=== PATIENT | female | born 1990 | race Caucasian/White ===

== ENCOUNTER 2017-07-30 14:32 | Emergency (ER) | payer OTHER ==
[~2017-07-30] VITALS: Ht 162.6 cm; Wt 81.7 kg
[~2017-07-30 14:32] MED LIST: ALBU90OI INH; AMLO5 PO; AMOCLA875 PO; AMOX500 PO; ASPI81CH PO; ATOR10 PO; ATOR20 PO; AZIT250 PO; Aspir 8181 MG PO; BENZ100A PO; BIRTH CONTROL; BIRTH CONTROL PILL; BUPR75 PO; Bactrim Ds Tab1 EACH PO; CEPH500 PO; CIPR500 PO; CITA20 PO; CYCL10 PO; Cipro500 MG PO; DIPH50 PO; FAMC500 PO; FENO48; FENO67 PO; FISH1000 PO; FLUC150A PO; HYDACE5 PO; HYDR1TAB94 PO; LABE100 PO; LABE200 PO; LEVFLO500 PO; LEVONORGESTREL; LISI5; METDOP250 PO; METHYLDOPA PO; MULVITMINE PO; NITR100CA PO; Norco 5-325 Ta1 EACH PO; ONDA4 PO; OXYACE5T PO; Omeprazole20 M1 PO; PHENA100 PO; PHENA200 PO; PROM25 PO; Percocet 5-3251 EACH PO; Pyridium100 MG PO; Pyridium200 MG PO; RANI150 PO; SIME80CH PO; STOMUL PO; SULTRIDS PO; TOBR.3OPSO OP; TRAM50 PO; TRIA80TC TOP; VALS80 PO; Verotin-Gr Cap1 EACH PO; Zofran Odt4 MG SL
[2017-07-30 15:28] LABS: BASOPHILS ABSOLUTE AUTO 0.02 K/mm3 (0.00-0.23); BASOPHILS PERCENT AUTO 0 % (0-2); EOSINOPHILS ABSOLUTE AUTO 0.17 K/mm3 (0.00-0.68); EOSINOPHILS PERCENT AUTO 2 % (0-6); Hematocrit 36.6 % (33.0-51.0); Hemoglobin 12.2 g/dL (11.5-16.0); IMMATURE GRAN ABSOLUTE AUTO 0.02 K/mm3 (0.00-0.10); IMMATURE GRAN PERCENT AUTO 0 % (0-1); LYMPHOCYTES ABSOLUTE AUTO 2.44 K/mm3 (0.84-5.20); LYMPHOCYTES PERCENT AUTO 31 % (21-46); MONOCYTES ABSOLUTE AUTO 0.49 K/mm3 (0.16-1.47); MONOCYTES PERCENT AUTO 6 % (4-13); Mean Corpuscular HGB 28.5 pg (26.0-34.0); Mean Corpuscular HGB Conc 33.3 g/dL (31.5-36.5); Mean Corpuscular Volume 86 fL (80-100); Mean Platelet Volume 9.9 fL (9.1-12.4); NEUTROPHILS ABSOLUTE AUTO 4.63 K/mm3 (1.96-9.15); NEUTROPHILS PERCENT AUTO 60 % (41-73); Platelet Count 213 K/mm3 (150-400); RDW Coefficient Variation 12.3 % (11.7-14.2); RDW Standard Deviation 37.1 fL (35.1-46.3); Red Blood Cell Count 4.28 M/mm3 (3.80-5.20); White Blood Cell Count 7.77 K/mm3 (4.00-11.30)
[2017-07-30 15:47] LABS: Alanine Aminotransfer (ALT/SGP 18 U/L (12-78); Albumin, Blood 3.3 g/dL (3.4-5.0); Albumin/Globulin Ratio 0.9 (0.8-1.8); Alk Phos 112 U/L (50-136); Anion Gap 7 mmol/L (6-16); Aspartate Aminotrans (AST/SGOT 16 U/L (12-37); Bilirubin, Total 0.4 mg/dL (0.1-1.0); Blood Urea Nitrogen 43 mg/dL (8-24); Bun/Creatinine Ratio 15.5 (12.0-20.0); CO2, Blood 24 mmol/L (21-32); Calcium, Blood 8.5 mg/dL (8.5-10.1); Chloride, Blood 112 mmol/L (98-108); Creatinine, Blood 2.77 mg/dL (0.40-1.00); Globulin, Blood 3.7 g/dL (2.2-4.0); Glomerular Filtration Rate 22 (60-); Glucose, Blood 88 mg/dL (70-99); Potassium, Blood 5.1 mmol/L (3.5-5.5); Sodium, Blood 143 mmol/L (136-145); Troponin I <0.015 ng/mL (0.000-0.040)
== END 2017-07-30 17:31 | disposition home or self-care (01) ==
LOC: ER 14:32
PROVIDERS: Physician Assistant
DX: F41.9 Anxiety disorder, unspecified (principal); R07.89 Other chest pain; I10 Essential (primary) hypertension; F32.9 Major depressive disorder, single episode, unspecified; E78.00 Pure hypercholesterolemia, unspecified; Z88.8 Allergy status to other drugs, medicaments and biological substances; Z79.899 Other long term (current) drug therapy
CPT/HCPCS: 36415; 80053; 84484; 85025; 93005; 93010; 99283

== ENCOUNTER 2017-08-21 18:49 | Emergency (ER) | payer OTHER ==
[~2017-08-21] VITALS: Ht 162.6 cm; Wt 81.2 kg
[2017-08-21] MEDS ORDERED: Prinivil10 MG PO (19:22)
== END 2017-08-21 20:00 | disposition home or self-care (01) ==
LOC: ER 18:49
DX: M79.672 Pain in left foot (principal); I10 Essential (primary) hypertension; F32.9 Major depressive disorder, single episode, unspecified; E78.00 Pure hypercholesterolemia, unspecified; Z88.8 Allergy status to other drugs, medicaments and biological substances; Z79.899 Other long term (current) drug therapy
CPT/HCPCS: 73630; 99283

== ENCOUNTER 2017-08-22 23:28 | Emergency (ER) | payer OTHER ==
[~2017-08-22] VITALS: Ht 162.6 cm; Wt 81.2 kg
[~2017-08-22 23:28] MED LIST changes: +Prinivil10 MG PO
[2017-08-23] MEDS ORDERED: ATOR20 PO (00:02)
== END 2017-08-23 00:35 | disposition home or self-care (01) ==
LOC: ER 23:28
DX: M79.672 Pain in left foot (principal); I10 Essential (primary) hypertension; F32.9 Major depressive disorder, single episode, unspecified; E78.00 Pure hypercholesterolemia, unspecified; Z91.09 Other allergy status, other than to drugs and biological substances; Z79.899 Other long term (current) drug therapy
CPT/HCPCS: 99283

== ENCOUNTER 2018-07-18 09:34 | Day surgery (SDC) | payer OTHER ==
[~2018-07-18] VITALS: Ht 162.6 cm; Wt 177.0 kg
[2018-07-18] MEDS ORDERED: VENL37.5 PO (09:53)
[2018-07-18] MEDS ORDERED: Rena-Vite Tabl0.8 MG PO (09:53)
[2018-07-18] MEDS ORDERED: ALPR.25 PO (09:54)
--- NOTE | 2018-07-18 12:41 | NUR ---
DR JONES AT BEDSIDE TO DISCUSS DISPO WITH PATIENT. QUESTIONS ANSWERED.
--- NOTE | 2018-07-18 13:23 | NUR ---
PT VERBALIZED UNDERSTANDING OF D/C INSTRUCTIONS. RIGHT UPPER CHEST INCISION REMAINS COVERED AT TIME OF DISPO WITH CLEAR TEGADERM AND NON ADHESIVE PAD IN PLACE. [facility]. IV REMOVED WITH CATH INTACT. PT GETS UP AND DRESSED WITH NO NEEDED ASSISTANCE. DENIES NEED FOR W/C OUT TO VEHICLE. AMBULATES WITH STEADY GAIT. NADN AT TIME OF DISPO.
== END 2018-07-18 13:10 | disposition home or self-care (01) ==
LOC: MHTC 09:34
DX: Z49.01 Encounter for fitting and adjustment of extracorporeal dialysis catheter (principal); I12.0 Hypertensive chronic kidney disease with stage 5 chronic kidney disease or end stage renal disease; N18.6 End stage renal disease
CPT/HCPCS: 36589; 87081; 99152; J1644; J2250; J3010; J7040

== ENCOUNTER → 2018-08-22 | Outpatient (CLI) | payer OTHER ==
[~2018-08-22] MED LIST changes: +ALPR.25 PO; +Rena-Vite Tabl0.8 MG PO; +VENL37.5 PO
[2018-08-23 10:15] LABS: Candida species (DNA Probe) Negative (NEGATIVE); G. vaginalis (DNA Probe) Positive (NEGATIVE); T. vaginalis (DNA Probe) Negative (NEGATIVE)
== END ==
LOC: LAB 13:37 → LAB SHORT 13:37
PROVIDERS: Registered Nurse Community Health
DX: Z20.2 Contact with and (suspected) exposure to infections with a predominantly sexual mode of transmission (principal)
CPT/HCPCS: 87070; 87205; 87480; 87510; 87660

== ENCOUNTER 2018-10-21 19:27 | Emergency (ER) | payer OTHER ==
[~2018-10-21] VITALS: Ht 160 cm; Wt 77.1 kg
[2018-10-21] MEDS ORDERED: AMLO5 PO (19:38)
[2018-10-21 19:53] LABS: Source, Urine Clean Catch
[2018-10-21 20:02] LABS: Bilirubin, Urine Neg (Neg); Blood, Urine 4+ (Neg); Glucose Qualitative, Urine Neg (Neg); Ketones, Urine Neg (Neg); Leukocyte Esterase, Urine 2+ (Neg); Nitrite, Urine Neg (Neg); Protein, Urine 4+ (Neg); Specific Gravity, Urine 1.015 (1.003-1.022); Urobilinogen, Urine NORM (Normal)
[2018-10-21 20:10] LABS: Appearance, Urine Hazy (Clear); Color, Urine Yellow (P-Yellow)
[2018-10-21 20:11] LABS: Bacteria Mod /hpf; Red Blood Cells, Urine TNTC /hpf (0-2); Squamous Epithelial Cells Few /hpf (Few); White Blood Cells, Urine TNTC /hpf (0-5)
[2018-10-21] MEDS ORDERED: CEPH500 PO (20:26)
== END 2018-10-21 20:40 | disposition home or self-care (01) ==
LOC: ER 19:27
PROVIDERS: Physician Assistant
DX: N39.0 Urinary tract infection, site not specified (principal); F41.9 Anxiety disorder, unspecified; F32.9 Major depressive disorder, single episode, unspecified; I12.0 Hypertensive chronic kidney disease with stage 5 chronic kidney disease or end stage renal disease; N18.6 End stage renal disease; E78.5 Hyperlipidemia, unspecified; Z79.899 Other long term (current) drug therapy
CPT/HCPCS: 81001; 87077; 87086; 87186; 99283

== ENCOUNTER → 2019-01-08 | Outpatient (CLI) | payer OTHER | END | disposition home or self-care (01) | LOC: LAB SHORT 14:15 → LAB 14:15 | PROVIDERS: Obstetrics & Gynecology | DX: Z01.419 Encounter for gynecological examination (general) (routine) without abnormal findings (principal) | CPT/HCPCS: 87624; 87625; G0123 ==

== ENCOUNTER → 2019-02-14 | Outpatient (CLI) | payer OTHER | END | disposition home or self-care (01) | LOC: PLD 15:43 → LAB SHORT 15:43 | DX: D06.1 Carcinoma in situ of exocervix (principal); N87.1 Moderate cervical dysplasia | CPT/HCPCS: 88305; 88342 ==

== ENCOUNTER → 2019-04-17 | Outpatient (CLI) | payer OTHER | END | disposition home or self-care (01) | LOC: LAB SHORT 13:35 → PLD 13:35 | DX: D06.1 Carcinoma in situ of exocervix (principal) | CPT/HCPCS: 88305 ==

== ENCOUNTER 2019-06-07 02:54 | Emergency (ER) | payer OTHER ==
[~2019-06-07] VITALS: Ht 160 cm; Wt 63.5 kg
[2019-06-07] MEDS ORDERED: LORA1 PO (03:13)
[2019-06-07] MEDS ORDERED: ZOLOFT25 MG PO (03:15)
[2019-06-07 03:53] LABS: BASOPHILS ABSOLUTE AUTO 0.02 K/mm3 (0.00-0.23); BASOPHILS PERCENT AUTO 0 % (0-2); EOSINOPHILS ABSOLUTE AUTO 0.04 K/mm3 (0.00-0.68); EOSINOPHILS PERCENT AUTO 0 % (0-6); Hematocrit 40.2 % (33.0-51.0); Hemoglobin 13.5 g/dL (11.5-16.0); IMMATURE GRAN ABSOLUTE AUTO 0.04 K/mm3 (0.00-0.10); IMMATURE GRAN PERCENT AUTO 0 % (0-1); LYMPHOCYTES ABSOLUTE AUTO 0.75 K/mm3 (0.84-5.20); LYMPHOCYTES PERCENT AUTO 6 % (21-46); MONOCYTES ABSOLUTE AUTO 0.76 K/mm3 (0.16-1.47); MONOCYTES PERCENT AUTO 6 % (4-13); Mean Corpuscular HGB 30.3 pg (26.0-34.0); Mean Corpuscular HGB Conc 33.6 g/dL (31.5-36.5); Mean Corpuscular Volume 90 fL (80-100); Mean Platelet Volume 9.2 fL (9.1-12.4); NEUTROPHILS ABSOLUTE AUTO 11.33 K/mm3 (1.96-9.15); NEUTROPHILS PERCENT AUTO 88 % (41-73); Platelet Count 209 K/mm3 (150-400); RDW Coefficient Variation 12.6 % (11.7-14.2); RDW Standard Deviation 41.2 fL (35.1-46.3); Red Blood Cell Count 4.45 M/mm3 (3.80-5.20); White Blood Cell Count 12.94 K/mm3 (4.00-11.30)
[2019-06-07 04:10] LABS: Albumin/Globulin Ratio 1.1 (0.8-1.8); Bilirubin, Total 0.6 mg/dL (0.1-1.0); Bun/Creatinine Ratio 6.5 (12.0-20.0); Calcium, Blood 8.9 mg/dL (8.5-10.1); Creatinine, Blood 4.28 mg/dL (0.40-1.00); Globulin, Blood 3.8 g/dL (2.2-4.0); Potassium, Blood 3.4 mmol/L (3.5-5.5); Total Protein, Blood 7.8 g/dL (6.4-8.2)
[2019-06-07 05:06] LABS: Magnesium, Blood 1.7 mg/dL (1.6-2.4)
[2019-06-07 05:06] LABS: Source, Urine Clean Catch
[2019-06-07 05:08] LABS: Bilirubin, Urine Neg (Neg); Blood, Urine Neg (Neg); Glucose Qualitative, Urine Neg (Neg); Ketones, Urine Neg (Neg); Leukocyte Esterase, Urine Neg (Neg); Nitrite, Urine Neg (Neg); Protein, Urine 3+ (Neg); Urobilinogen, Urine NORM (Normal)
[2019-06-07 05:38] LABS: Appearance, Urine Clear (Clear); Color, Urine Yellow (P-Yellow)
[2019-06-07 05:40] LABS: Bacteria Many /hpf; Red Blood Cells, Urine Not Seen /hpf (0-2); Squamous Epithelial Cells Many /hpf (Few); Transitional Epithelial Cells Rare /hpf (0-Rare); White Blood Cells, Urine Not Seen /hpf (0-5)
[2019-06-07] MEDS ORDERED: Zofran4 MG PO (05:54)
== END 2019-06-07 06:03 | disposition home or self-care (01) ==
LOC: ER 02:54
PROVIDERS: Emergency Medicine
DX: E86.0 Dehydration (principal); R19.7 Diarrhea, unspecified; R11.2 Nausea with vomiting, unspecified; I12.0 Hypertensive chronic kidney disease with stage 5 chronic kidney disease or end stage renal disease; N18.6 End stage renal disease; Z99.2 Dependence on renal dialysis; F41.9 Anxiety disorder, unspecified; F32.9 Major depressive disorder, single episode, unspecified; Z88.8 Allergy status to other drugs, medicaments and biological substances; Z79.899 Other long term (current) drug therapy
CPT/HCPCS: 36415; 80053; 81001; 81025; 83690; 83735; 85025; 96361; 96374; 99284-25; A9270; A9270-GY; J2405; J7030

== ENCOUNTER → 2019-08-12 | Outpatient (CLI) | payer OTHER ==
[~2019-08-12] MED LIST changes: +LORA1 PO; +ZOLOFT25 MG PO; +Zofran4 MG PO
== END | disposition home or self-care (01) ==
LOC: LAB SHORT 19:10 → LAB EV 19:10
DX: N39.0 Urinary tract infection, site not specified (principal)
CPT/HCPCS: 87086

== ENCOUNTER → 2020-05-05 | Outpatient (CLI) | payer OTHER ==
[2020-05-09 08:11] LABS: HPV 16 Negative (Negative); HPV 18 Negative (Negative); HPV OTHER HR TYPES Negative (Negative)
== END | disposition home or self-care (01) ==
LOC: LAB 11:15 → LAB SHORT 11:15
PROVIDERS: Obstetrics & Gynecology
DX: Z01.419 Encounter for gynecological examination (general) (routine) without abnormal findings (principal)
CPT/HCPCS: 87624; G0123

== ENCOUNTER 2020-11-20 20:46 | Emergency (ER) | payer OTHER ==
[~2020-11-20] VITALS: Ht 160 cm; Wt 72.6 kg
[2020-11-20 22:08] LABS: Albumin, Blood 3.6 g/dL (3.4-5.0); Albumin/Globulin Ratio 0.9 (0.8-1.8); Bilirubin, Total 0.5 mg/dL (0.1-1.0); Bun/Creatinine Ratio 7.5 (12.0-20.0); Calcium, Blood 9.6 mg/dL (8.5-10.1); Creatinine, Blood 5.35 mg/dL (0.40-1.00); Globulin, Blood 4.1 g/dL (2.2-4.0); Potassium, Blood 4.2 mmol/L (3.5-5.5); Total Protein, Blood 7.7 g/dL (6.4-8.2)
[2020-11-20 22:10] LABS: BASOPHILS ABSOLUTE AUTO 0.04 K/mm3 (0.00-0.23); BASOPHILS PERCENT AUTO 0 % (0-2); EOSINOPHILS ABSOLUTE AUTO 0.47 K/mm3 (0.00-0.68); EOSINOPHILS PERCENT AUTO 4 % (0-6); Hemoglobin 12.6 g/dL (11.5-16.0); IMMATURE GRAN ABSOLUTE AUTO 0.06 K/mm3 (0.00-0.10); IMMATURE GRAN PERCENT AUTO 1 % (0-1); LYMPHOCYTES ABSOLUTE AUTO 3.11 K/mm3 (0.84-5.20); LYMPHOCYTES PERCENT AUTO 26 % (21-46); MONOCYTES ABSOLUTE AUTO 0.87 K/mm3 (0.16-1.47); MONOCYTES PERCENT AUTO 7 % (4-13); Mean Corpuscular HGB 30.2 pg (26.0-34.0); Mean Corpuscular HGB Conc 33.2 g/dL (31.5-36.5); Mean Corpuscular Volume 91 fL (80-100); NEUTROPHILS ABSOLUTE AUTO 7.48 K/mm3 (1.96-9.15); NEUTROPHILS PERCENT AUTO 62 % (41-73); RDW Coefficient Variation 12.5 % (11.7-14.2); RDW Standard Deviation 41.4 fL (35.1-46.3); Red Blood Cell Count 4.17 M/mm3 (3.80-5.20); White Blood Cell Count 12.03 K/mm3 (4.00-11.30)
[2020-11-20 22:15] LABS: Platelet Count 215 K/mm3 (150-400)
[2020-11-20] MEDS ORDERED: Rena-Vite Tabl0.8 MG PO (22:15)
[2020-11-20 22:46] LABS: Source, Urine Catheter
[2020-11-20 22:51] LABS: Bilirubin, Urine Neg (Neg); Blood, Urine 1+ (Neg); Glucose Qualitative, Urine Neg (Neg); Ketones, Urine Neg (Neg); Leukocyte Esterase, Urine Neg (Neg); Nitrite, Urine Neg (Neg); Protein, Urine 3+ (Neg); Urobilinogen, Urine NORM (Normal)
[2020-11-20 22:55] LABS: Appearance, Urine Clear (Clear); Color, Urine Yellow (P-Yellow)
[2020-11-20 23:05] LABS: Bacteria Mod /hpf; Red Blood Cells, Urine 0-2 /hpf (0-2); Squamous Epithelial Cells Mod /hpf (Few); White Blood Cells, Urine 0-2 /hpf (0-5)
== END 2020-11-21 00:04 | disposition home or self-care (01) ==
LOC: ER 20:46
PROVIDERS: Physician Assistant
DX: R19.7 Diarrhea, unspecified (principal); I12.0 Hypertensive chronic kidney disease with stage 5 chronic kidney disease or end stage renal disease; N18.6 End stage renal disease; Z88.8 Allergy status to other drugs, medicaments and biological substances
CPT/HCPCS: 36415; 80053; 81001; 81025; 83690; 85025; 87077; 87086; 87186; 99284

== ENCOUNTER 2021-02-11 09:19 | Emergency (ER) | payer OTHER ==
[~2021-02-11] VITALS: Ht 162.6 cm; Wt 69.8 kg
== END 2021-02-11 09:55 | disposition home or self-care (01) ==
LOC: ER 09:19
DX: F41.9 Anxiety disorder, unspecified (principal); I10 Essential (primary) hypertension; Z88.8 Allergy status to other drugs, medicaments and biological substances; Z79.899 Other long term (current) drug therapy
CPT/HCPCS: 99283

== ENCOUNTER 2021-03-20 03:38 | Emergency (ER) | payer OTHER ==
[~2021-03-20] VITALS: Ht 162.6 cm; Wt 68.0 kg
[2021-03-20] MEDS ORDERED: FLUO10 PO (04:00)
[2021-03-20] MEDS ORDERED: SEVEC800 PO (04:01)
[2021-03-20] MEDS ORDERED: FAMO20 PO (04:01)
[2021-03-20] MEDS ORDERED: BUPR75 PO (04:02)
[2021-03-20] MEDS ORDERED: CEFD300 PO (04:02)
[2021-03-20] MEDS ORDERED: ONDA4 PO (04:03)
[2021-03-20] MEDS ORDERED: Rena-Vite Tabl0.8 MG PO (04:03)
[2021-03-20 04:26] LABS: BASOPHILS ABSOLUTE AUTO 0.02 K/mm3 (0.00-0.23); BASOPHILS PERCENT AUTO 0 % (0-2); EOSINOPHILS ABSOLUTE AUTO 0.22 K/mm3 (0.00-0.68); EOSINOPHILS PERCENT AUTO 3 % (0-6); Hematocrit 34.8 % (33.0-51.0); Hemoglobin 11.8 g/dL (11.5-16.0); IMMATURE GRAN ABSOLUTE AUTO 0.02 K/mm3 (0.00-0.10); IMMATURE GRAN PERCENT AUTO 0 % (0-1); LYMPHOCYTES ABSOLUTE AUTO 2.01 K/mm3 (0.84-5.20); LYMPHOCYTES PERCENT AUTO 31 % (21-46); MONOCYTES ABSOLUTE AUTO 0.47 K/mm3 (0.16-1.47); MONOCYTES PERCENT AUTO 7 % (4-13); Mean Corpuscular HGB 30.3 pg (26.0-34.0); Mean Corpuscular HGB Conc 33.9 g/dL (31.5-36.5); Mean Corpuscular Volume 90 fL (80-100); Mean Platelet Volume 9.4 fL (9.1-12.4); NEUTROPHILS ABSOLUTE AUTO 3.72 K/mm3 (1.96-9.15); NEUTROPHILS PERCENT AUTO 58 % (41-73); Platelet Count 193 K/mm3 (150-400); RDW Standard Deviation 39.3 fL (35.1-46.3); Red Blood Cell Count 3.89 M/mm3 (3.80-5.20); White Blood Cell Count 6.46 K/mm3 (4.00-11.30)
[2021-03-20 04:49] LABS: Alanine Aminotransfer (ALT/SGP 14 U/L (12-78); Albumin, Blood 3.2 g/dL (3.4-5.0); Albumin/Globulin Ratio 0.8 (0.8-1.8); Alk Phos 85 U/L (50-136); Anion Gap 9 mmol/L (6-16); Aspartate Aminotrans (AST/SGOT 18 U/L (12-37); Bilirubin, Total 0.3 mg/dL (0.1-1.0); Blood Urea Nitrogen 44 mg/dL (8-24); Bun/Creatinine Ratio 7.9 (12.0-20.0); CO2, Blood 28 mmol/L (21-32); Calcium, Blood 9.2 mg/dL (8.5-10.1); Chloride, Blood 103 mmol/L (98-108); Creatinine, Blood 5.56 mg/dL (0.40-1.00); Globulin, Blood 3.8 g/dL (2.2-4.0); Glomerular Filtration Rate 9 (60-); Glucose, Blood 100 mg/dL (70-99); Potassium, Blood 3.3 mmol/L (3.5-5.5); Sodium, Blood 140 mmol/L (136-145); Troponin I <0.015 ng/mL (0.000-0.040)
== END 2021-03-20 07:08 | disposition home or self-care (01) ==
LOC: ER 03:38
PROVIDERS: Student in an Organized Health Care Education/Training Program
DX: R07.9 Chest pain, unspecified (principal); R11.0 Nausea; I10 Essential (primary) hypertension; E78.00 Pure hypercholesterolemia, unspecified; Z88.8 Allergy status to other drugs, medicaments and biological substances; Z79.899 Other long term (current) drug therapy
CPT/HCPCS: 36415; 71045; 80053; 84484; 85025; 93005; 93010; 99285-25

== ENCOUNTER 2021-05-25 21:01 | Emergency (ER) | payer OTHER ==
[~2021-05-25] VITALS: Ht 162.6 cm; Wt 65.8 kg
[~2021-05-25 21:01] MED LIST changes: +CEFD300 PO; +FAMO20 PO; +FLUO10 PO; +SEVEC800 PO
[2021-05-25 21:58] LABS: BASOPHILS ABSOLUTE AUTO 0.03 K/mm3 (0.00-0.23); BASOPHILS PERCENT AUTO 0 % (0-2); EOSINOPHILS ABSOLUTE AUTO 0.05 K/mm3 (0.00-0.68); EOSINOPHILS PERCENT AUTO 1 % (0-6); Hemoglobin 13.4 g/dL (11.5-16.0); IMMATURE GRAN ABSOLUTE AUTO 0.03 K/mm3 (0.00-0.10); IMMATURE GRAN PERCENT AUTO 0 % (0-1); LYMPHOCYTES ABSOLUTE AUTO 1.22 K/mm3 (0.84-5.20); LYMPHOCYTES PERCENT AUTO 13 % (21-46); MONOCYTES ABSOLUTE AUTO 0.41 K/mm3 (0.16-1.47); MONOCYTES PERCENT AUTO 4 % (4-13); Mean Corpuscular HGB 29.6 pg (26.0-34.0); Mean Corpuscular HGB Conc 34.4 g/dL (31.5-36.5); Mean Corpuscular Volume 86 fL (80-100); Mean Platelet Volume 9.4 fL (9.1-12.4); NEUTROPHILS ABSOLUTE AUTO 7.85 K/mm3 (1.96-9.15); NEUTROPHILS PERCENT AUTO 82 % (41-73); Platelet Count 243 K/mm3 (150-400); RDW Coefficient Variation 12.2 % (11.7-14.2); RDW Standard Deviation 38.5 fL (35.1-46.3); Red Blood Cell Count 4.53 M/mm3 (3.80-5.20); White Blood Cell Count 9.59 K/mm3 (4.00-11.30)
[2021-05-25 22:07] LABS: Source, Urine Clean Catch
[2021-05-25 22:10] LABS: Appearance, Urine Clear (Clear); Bilirubin, Urine Neg (Neg); Blood, Urine Neg (Neg); Color, Urine Yellow (P-Yellow); Glucose Qualitative, Urine Neg (Neg); Ketones, Urine Neg (Neg); Leukocyte Esterase, Urine Neg (Neg); Nitrite, Urine Neg (Neg); Protein, Urine 3+ (Neg); Urobilinogen, Urine NORM (Normal)
[2021-05-25 22:29] LABS: Alanine Aminotransfer (ALT/SGP 24 U/L (12-78); Albumin, Blood 3.7 g/dL (3.4-5.0); Albumin/Globulin Ratio 0.9 (0.8-1.8); Alk Phos 96 U/L (50-136); Anion Gap 8 mmol/L (6-16); Aspartate Aminotrans (AST/SGOT 21 U/L (12-37); Bilirubin, Total 0.6 mg/dL (0.1-1.0); Blood Urea Nitrogen 23 mg/dL (8-24); Bun/Creatinine Ratio 6.7 (12.0-20.0); CO2, Blood 29 mmol/L (21-32); Calcium, Blood 9.6 mg/dL (8.5-10.1); Chloride, Blood 98 mmol/L (98-108); Creatinine, Blood 3.43 mg/dL (0.40-1.00); Globulin, Blood 4.2 g/dL (2.2-4.0); Glomerular Filtration Rate 16 (60-); Glucose, Blood 107 mg/dL (70-99); Potassium, Blood 3.7 mmol/L (3.5-5.5); Sodium, Blood 135 mmol/L (136-145); Total Protein, Blood 7.9 g/dL (6.4-8.2); Troponin I <0.015 ng/mL (0.000-0.040)
[2021-05-25 22:42] LABS: Bacteria Many /hpf; Red Blood Cells, Urine 0-2 /hpf (0-2); Squamous Epithelial Cells Many /hpf (Few)
[2021-05-25 22:53] LABS: CPK Creatine Kinase 63 U/L (26-193); Magnesium, Blood 1.9 mg/dL (1.6-2.4)
[2021-05-25 23:25] LABS: Influenza A, PCR NEGATIVE (NEGATIVE); Influenza B, PCR NEGATIVE (NEGATIVE); Resp Syncytial Virus, PCR NEGATIVE (NEGATIVE); SARS-Cov-2 (COVID-19) PCR, MMC NEGATIVE (NEGATIVE)
== END 2021-05-26 00:44 | disposition home or self-care (01) ==
LOC: ER 21:01
PROVIDERS: Physician Assistant; Student in an Organized Health Care Education/Training Program
DX: F41.9 Anxiety disorder, unspecified (principal); M79.10 Myalgia, unspecified site; I12.0 Hypertensive chronic kidney disease with stage 5 chronic kidney disease or end stage renal disease; N18.6 End stage renal disease; Z88.8 Allergy status to other drugs, medicaments and biological substances; Z79.899 Other long term (current) drug therapy; E78.00 Pure hypercholesterolemia, unspecified
CPT/HCPCS: 0241U; 36415; 76770; 80053; 81001; 81025; 82550; 83735; 84484; 85025; 87086; 93005; 93010; 99284-25; A9270; J7030

== ENCOUNTER 2021-06-14 20:47 | Emergency (ER) | payer OTHER ==
[~2021-06-14] VITALS: Ht 162.6 cm; Wt 65.8 kg
[2021-06-14 21:55] LABS: BASOPHILS ABSOLUTE AUTO 0.02 K/mm3 (0.00-0.23); BASOPHILS PERCENT AUTO 0 % (0-2); EOSINOPHILS ABSOLUTE AUTO 0.16 K/mm3 (0.00-0.68); EOSINOPHILS PERCENT AUTO 2 % (0-6); Hematocrit 36.9 % (33.0-51.0); Hemoglobin 12.5 g/dL (11.5-16.0); IMMATURE GRAN ABSOLUTE AUTO 0.02 K/mm3 (0.00-0.10); IMMATURE GRAN PERCENT AUTO 0 % (0-1); LYMPHOCYTES ABSOLUTE AUTO 3.07 K/mm3 (0.84-5.20); LYMPHOCYTES PERCENT AUTO 41 % (21-46); MONOCYTES ABSOLUTE AUTO 0.59 K/mm3 (0.16-1.47); MONOCYTES PERCENT AUTO 8 % (4-13); Mean Corpuscular HGB 29.6 pg (26.0-34.0); Mean Corpuscular HGB Conc 33.9 g/dL (31.5-36.5); Mean Corpuscular Volume 87 fL (80-100); Mean Platelet Volume 9.4 fL (9.1-12.4); NEUTROPHILS ABSOLUTE AUTO 3.72 K/mm3 (1.96-9.15); NEUTROPHILS PERCENT AUTO 49 % (41-73); Platelet Count 232 K/mm3 (150-400); RDW Standard Deviation 38.5 fL (35.1-46.3); Red Blood Cell Count 4.23 M/mm3 (3.80-5.20); White Blood Cell Count 7.58 K/mm3 (4.00-11.30)
[2021-06-14 22:01] LABS: Alanine Aminotransfer (ALT/SGP 20 U/L (12-78); Albumin, Blood 4.1 g/dL (3.4-5.0); Alk Phos 94 U/L (50-136); Anion Gap 9 mmol/L (6-16); Aspartate Aminotrans (AST/SGOT 25 U/L (12-37); Bilirubin, Total 0.4 mg/dL (0.1-1.0); Blood Urea Nitrogen 53 mg/dL (8-24); Bun/Creatinine Ratio 8.6 (12.0-20.0); CO2, Blood 30 mmol/L (21-32); Calcium, Blood 9.7 mg/dL (8.5-10.1); Chloride, Blood 98 mmol/L (98-108); Creatinine, Blood 6.16 mg/dL (0.40-1.00); Glomerular Filtration Rate 8 (60-); Glucose, Blood 113 mg/dL (70-99); Potassium, Blood 4.4 mmol/L (3.5-5.5); Sodium, Blood 137 mmol/L (136-145); Total Protein, Blood 8.1 g/dL (6.4-8.2); Troponin I <0.015 ng/mL (0.000-0.040)
== END 2021-06-14 22:52 | disposition home or self-care (01) ==
LOC: ER 20:47
PROVIDERS: Physician Assistant
DX: R07.89 Other chest pain (principal); Z88.8 Allergy status to other drugs, medicaments and biological substances; Z79.899 Other long term (current) drug therapy; I10 Essential (primary) hypertension; E78.00 Pure hypercholesterolemia, unspecified
CPT/HCPCS: 36415; 71046; 80053; 83690; 83880; 84484; 85025; 93005; 93010; 99285-25

== ENCOUNTER → 2021-08-05 | Outpatient (CLI) | payer OTHER ==
[2021-08-06 16:09] LABS: HPV 16 Negative (Negative); HPV 18 Negative (Negative); HPV OTHER HR TYPES Negative (Negative)
== END | disposition home or self-care (01) ==
LOC: LAB SHORT 15:15
PROVIDERS: Obstetrics & Gynecology
DX: Z01.419 Encounter for gynecological examination (general) (routine) without abnormal findings (principal)
CPT/HCPCS: 87624; G0123

== ENCOUNTER 2021-08-26 22:45 | Emergency (ER) | payer OTHER ==
[~2021-08-26] VITALS: Ht 162.6 cm; Wt 61.2 kg
[2021-08-26 23:14] LABS: BASOPHILS ABSOLUTE AUTO 0.02 K/mm3 (0.00-0.23); BASOPHILS PERCENT AUTO 0 % (0-2); EOSINOPHILS ABSOLUTE AUTO 0.17 K/mm3 (0.00-0.68); EOSINOPHILS PERCENT AUTO 2 % (0-6); Hematocrit 37.9 % (33.0-51.0); Hemoglobin 12.9 g/dL (11.5-16.0); IMMATURE GRAN ABSOLUTE AUTO 0.02 K/mm3 (0.00-0.10); IMMATURE GRAN PERCENT AUTO 0 % (0-1); LYMPHOCYTES ABSOLUTE AUTO 3.05 K/mm3 (0.84-5.20); LYMPHOCYTES PERCENT AUTO 32 % (21-46); MONOCYTES ABSOLUTE AUTO 0.78 K/mm3 (0.16-1.47); MONOCYTES PERCENT AUTO 8 % (4-13); Mean Corpuscular HGB 29.7 pg (26.0-34.0); Mean Corpuscular Volume 87 fL (80-100); NEUTROPHILS ABSOLUTE AUTO 5.42 K/mm3 (1.96-9.15); NEUTROPHILS PERCENT AUTO 57 % (41-73); Platelet Count 279 K/mm3 (150-400); RDW Coefficient Variation 12.1 % (11.7-14.2); RDW Standard Deviation 38.5 fL (35.1-46.3); Red Blood Cell Count 4.35 M/mm3 (3.80-5.20); White Blood Cell Count 9.46 K/mm3 (4.00-11.30)
[2021-08-26 23:33] LABS: Albumin, Blood 3.7 g/dL (3.4-5.0); Albumin/Globulin Ratio 0.9 (0.8-1.8); Bilirubin, Total 0.3 mg/dL (0.1-1.0); Bun/Creatinine Ratio 8.6 (12.0-20.0); Calcium, Blood 9.5 mg/dL (8.5-10.1); Creatinine, Blood 3.95 mg/dL (0.40-1.00); Globulin, Blood 4.1 g/dL (2.2-4.0); Potassium, Blood 3.6 mmol/L (3.5-5.5); Total Protein, Blood 7.8 g/dL (6.4-8.2)
== END 2021-08-27 01:39 | disposition home or self-care (01) ==
LOC: ER 22:45
PROVIDERS: Student in an Organized Health Care Education/Training Program
DX: R07.9 Chest pain, unspecified (principal); E78.5 Hyperlipidemia, unspecified; I10 Essential (primary) hypertension; Z79.899 Other long term (current) drug therapy
CPT/HCPCS: 36415; 71045; 80053; 84484; 85025; 93005; 93010; 99284-25

== ENCOUNTER 2021-12-30 18:43 | Emergency (ER) | payer OTHER ==
[~2021-12-30] VITALS: Ht 162.6 cm; Wt 63.5 kg
== END 2021-12-30 20:59 | disposition home or self-care (01) ==
LOC: ER 18:43
DX: R06.4 Hyperventilation (principal); F43.9 Reaction to severe stress, unspecified; I12.0 Hypertensive chronic kidney disease with stage 5 chronic kidney disease or end stage renal disease; N18.6 End stage renal disease; Z99.2 Dependence on renal dialysis; Z88.8 Allergy status to other drugs, medicaments and biological substances; Z79.899 Other long term (current) drug therapy
CPT/HCPCS: A9270

== ENCOUNTER 2022-09-30 21:19 | Emergency (ER) | payer OTHER ==
[~2022-09-30] VITALS: Ht 160 cm; Wt 78.0 kg
[~2022-09-30 21:19] MED LIST changes: +HYDHCL25; +SERT25 PO
[2022-09-30 21:34] VITALS: BP 144/92
== END 2022-09-30 22:30 | disposition home or self-care (01) ==
LOC: ER 21:19
DX: L72.9 Follicular cyst of the skin and subcutaneous tissue, unspecified (principal); Z88.8 Allergy status to other drugs, medicaments and biological substances; Z79.899 Other long term (current) drug therapy; I10 Essential (primary) hypertension; E78.5 Hyperlipidemia, unspecified
CPT/HCPCS: 99282

== ENCOUNTER → 2023-04-24 | Outpatient (CLI) | payer OTHER | LOC: LAB 10:33 → LAB SHORT 10:33 | DX: R30.0 Dysuria (principal) | CPT/HCPCS: 87077; 87086; 87186 ==

== ENCOUNTER 2023-08-03 23:38 | Emergency (ER) | payer OTHER ==
[~2023-08-03] VITALS: Ht 160 cm; Wt 93.9 kg
[2023-08-03] MEDS ORDERED: OMEPRAZOLE20 M1 PO (23:53)
[2023-08-03] MEDS ORDERED: TACROLIMUS PO (23:54)
[2023-08-03] MEDS ORDERED: PRENATAL TABLE1 EAC2 PO (23:54)
[2023-08-03] MEDS ORDERED: Potassium Chlo20 ME1 PO (23:54)
[2023-08-04 00:36] LABS: Source, Urine Clean Catch
[2023-08-04 00:39] LABS: Albumin, Blood 3.5 g/dL (3.4-5.0); Bilirubin, Total 0.5 mg/dL (0.1-1.0); Bun/Creatinine Ratio 21.6 (12.0-20.0); Calcium, Blood 9.9 mg/dL (8.5-10.1); Creatinine, Blood 0.56 mg/dL (0.40-1.00); Globulin, Blood 3.6 g/dL (2.2-4.0); Total Protein, Blood 7.1 g/dL (6.4-8.2)
[2023-08-04 00:51] LABS: Bilirubin, Urine Neg (Neg); Blood, Urine 3+ (Neg); Glucose Qualitative, Urine Neg (Neg); Ketones, Urine Neg (Neg); Leukocyte Esterase, Urine Neg (Neg); Nitrite, Urine Neg (Neg); Protein, Urine 1+ (Neg); Urobilinogen, Urine NORM (Normal); pH, Urine 6.5 (5.0-8.0)
[2023-08-04 00:55] LABS: BASOPHILS ABSOLUTE AUTO 0.03 K/mm3 (0.00-0.23); BASOPHILS PERCENT AUTO 0 % (0-2); EOSINOPHILS ABSOLUTE AUTO 0.15 K/mm3 (0.00-0.68); EOSINOPHILS PERCENT AUTO 1 % (0-6); Hematocrit 39.6 % (33.0-51.0); Hemoglobin 13.6 g/dL (11.5-16.0); IMMATURE GRAN ABSOLUTE AUTO 0.12 K/mm3 (0.00-0.10); IMMATURE GRAN PERCENT AUTO 1 % (0-1); LYMPHOCYTES ABSOLUTE AUTO 2.01 K/mm3 (0.84-5.20); LYMPHOCYTES PERCENT AUTO 16 % (21-46); MONOCYTES ABSOLUTE AUTO 0.92 K/mm3 (0.16-1.47); MONOCYTES PERCENT AUTO 7 % (4-13); Mean Corpuscular HGB 30.4 pg (26.0-34.0); Mean Corpuscular HGB Conc 34.3 g/dL (31.5-36.5); Mean Corpuscular Volume 89 fL (80-100); Mean Platelet Volume 9.2 fL (9.1-12.4); NEUTROPHILS ABSOLUTE AUTO 9.52 K/mm3 (1.96-9.15); NEUTROPHILS PERCENT AUTO 75 % (41-73); Platelet Count 259 K/mm3 (150-400); RDW Coefficient Variation 14.3 % (11.7-14.2); RDW Standard Deviation 45.5 fL (35.1-46.3); Red Blood Cell Count 4.47 M/mm3 (3.80-5.20); White Blood Cell Count 12.75 K/mm3 (4.00-11.30)
[2023-08-04 01:06] LABS: Appearance, Urine Hazy (Clear); Color, Urine Yellow (P-Yellow)
[2023-08-04 01:07] LABS: Amorphous Light (0-Heavy); Bacteria Mod /hpf; Red Blood Cells, Urine 0-2 /hpf (0-2); Squamous Epithelial Cells Many /hpf (Few); White Blood Cells, Urine 0-2 /hpf (0-5)
[2023-08-04 02:11] VITALS: BP 145/94
[2023-08-04] MEDS ORDERED: PRENATAL TABLE1 EAC2 PO (02:23)
== END 2023-08-04 02:49 | disposition home or self-care (01) ==
LOC: ER 23:38
PROVIDERS: Emergency Medicine
DX: O34.81 Maternal care for other abnormalities of pelvic organs, first trimester (principal); N83.02 Follicular cyst of left ovary; O10.911 Unspecified pre-existing hypertension complicating pregnancy, first trimester; O99.281 Endocrine, nutritional and metabolic diseases complicating pregnancy, first trimester; E78.5 Hyperlipidemia, unspecified
CPT/HCPCS: 76801; 76817; 80053; 81001; 84703; 85025; 99284-25

== ENCOUNTER → 2023-10-13 | Outpatient (CLI) | payer OTHER | LOC: LAB 17:47 → LAB SHORT 17:47 | DX: N76.0 Acute vaginitis (principal) ==

== ENCOUNTER 2023-11-26 14:03 | Emergency (ER) | payer OTHER ==
[~2023-11-26] VITALS: Ht 160 cm; Wt 65.8 kg
[~2023-11-26 14:03] MED LIST changes: +OMEPRAZOLE20 M1 PO; +PRENATAL TABLE1 EAC2 PO; +Potassium Chlo20 ME1 PO; +TACROLIMUS PO
[2023-11-26 14:19] VITALS: BP 135/93
[2023-11-26] MEDS ORDERED: Promethazine HCl 25 MG Tab PO ONE (14:55)
[2023-11-26 15:02] LABS: BASOPHILS ABSOLUTE AUTO 0.02 K/mm3 (0.00-0.23); BASOPHILS PERCENT AUTO 0 % (0-2); EOSINOPHILS ABSOLUTE AUTO 0.03 K/mm3 (0.00-0.68); EOSINOPHILS PERCENT AUTO 0 % (0-6); Hematocrit 35.1 % (33.0-51.0); Hemoglobin 11.8 g/dL (11.5-16.0); IMMATURE GRAN ABSOLUTE AUTO 0.08 K/mm3 (0.00-0.10); IMMATURE GRAN PERCENT AUTO 1 % (0-1); LYMPHOCYTES ABSOLUTE AUTO 0.85 K/mm3 (0.84-5.20); LYMPHOCYTES PERCENT AUTO 6 % (21-46); MONOCYTES ABSOLUTE AUTO 0.31 K/mm3 (0.16-1.47); MONOCYTES PERCENT AUTO 2 % (4-13); Mean Corpuscular HGB 29.6 pg (26.0-34.0); Mean Corpuscular HGB Conc 33.6 g/dL (31.5-36.5); Mean Corpuscular Volume 88 fL (80-100); Mean Platelet Volume 9.2 fL (9.1-12.4); NEUTROPHILS ABSOLUTE AUTO 12.17 K/mm3 (1.96-9.15); NEUTROPHILS PERCENT AUTO 91 % (41-73); Platelet Count 264 K/mm3 (150-400); RDW Standard Deviation 48.2 fL (35.1-46.3); Red Blood Cell Count 3.99 M/mm3 (3.80-5.20); White Blood Cell Count 13.46 K/mm3 (4.00-11.30)
[2023-11-26 15:04] LABS: Source, Urine Clean Catch
[2023-11-26 15:08] LABS: Appearance, Urine Hazy (Clear); Bilirubin, Urine Neg (Neg); Blood, Urine 4+ (Neg); Color, Urine Yellow (P-Yellow); Glucose Qualitative, Urine Neg (Neg); Ketones, Urine 1+ (Neg); Leukocyte Esterase, Urine 1+ (Neg); Nitrite, Urine Neg (Neg); Protein, Urine 2+ (Neg); Urobilinogen, Urine NORM (Normal)
[2023-11-26 15:17] LABS: Bacteria Many /hpf; Squamous Epithelial Cells Few /hpf (Few)
[2023-11-26 15:18] LABS: Hyaline Casts 0-2 /lpf (0-2)
[2023-11-26 15:19] LABS: Albumin, Blood 2.8 g/dL (3.4-5.0); Albumin/Globulin Ratio 0.6 (0.8-1.8); Bilirubin, Total 0.4 mg/dL (0.1-1.0); Bun/Creatinine Ratio 16.3 (12.0-20.0); Calcium, Blood 9.4 mg/dL (8.5-10.1); Creatinine, Blood 0.68 mg/dL (0.40-1.00); Globulin, Blood 4.8 g/dL (2.2-4.0); Potassium, Blood 4.3 mmol/L (3.5-5.5); Total Protein, Blood 7.6 g/dL (6.4-8.2)
[2023-11-26] MEDS ORDERED: NS 1,000 ML BAG IR ONE (15:45)
[2023-11-26] MEDS ORDERED: NS 1,000 ML BAG IV ONE (15:45)
[2023-11-26 16:03] LABS: Influenza A, PCR NEGATIVE (NEGATIVE); Influenza B, PCR NEGATIVE (NEGATIVE); Resp Syncytial Virus, PCR NEGATIVE (NEGATIVE); SARS-Cov-2 (COVID-19) PCR, MMC NEGATIVE (NEGATIVE)
[2023-11-26] MEDS ORDERED: PROM25 PO (16:03)
[2023-11-26] MEDS ORDERED: AMOCLA875 PO (16:03)
== END 2023-11-26 14:25 | disposition home or self-care (01) ==
LOC: ER 14:03
PROVIDERS: Nurse Practitioner
DX: O99.891 Other specified diseases and conditions complicating pregnancy (principal); H66.92 Otitis media, unspecified, left ear; O23.42 Unspecified infection of urinary tract in pregnancy, second trimester; O21.9 Vomiting of pregnancy, unspecified; Z3A.21 21 weeks gestation of pregnancy; I10 Essential (primary) hypertension; E78.00 Pure hypercholesterolemia, unspecified; Z88.8 Allergy status to other drugs, medicaments and biological substances
CPT/HCPCS: 0241U; 80053; 81001; 85025; 87086; 99283; A9270; J7030

== ENCOUNTER → 2024-01-18 | Outpatient (CLI) | payer OTHER ==
[2024-01-18 19:04] LABS: BASOPHILS ABSOLUTE AUTO 0.02 K/mm3 (0.00-0.23); BASOPHILS PERCENT AUTO 0 % (0-2); EOSINOPHILS ABSOLUTE AUTO 0.14 K/mm3 (0.00-0.68); EOSINOPHILS PERCENT AUTO 1 % (0-6); Hematocrit 33.6 % (33.0-51.0); Hemoglobin 11.4 g/dL (11.5-16.0); IMMATURE GRAN ABSOLUTE AUTO 0.08 K/mm3 (0.00-0.10); IMMATURE GRAN PERCENT AUTO 1 % (0-1); LYMPHOCYTES ABSOLUTE AUTO 1.39 K/mm3 (0.84-5.20); LYMPHOCYTES PERCENT AUTO 12 % (21-46); MONOCYTES ABSOLUTE AUTO 0.69 K/mm3 (0.16-1.47); MONOCYTES PERCENT AUTO 6 % (4-13); Mean Corpuscular HGB 30.6 pg (26.0-34.0); Mean Corpuscular HGB Conc 33.9 g/dL (31.5-36.5); Mean Corpuscular Volume 90 fL (80-100); Mean Platelet Volume 9.7 fL (9.1-12.4); NEUTROPHILS ABSOLUTE AUTO 9.28 K/mm3 (1.96-9.15); NEUTROPHILS PERCENT AUTO 80 % (41-73); Platelet Count 221 K/mm3 (150-400); RDW Coefficient Variation 15.5 % (11.7-14.2); RDW Standard Deviation 50.6 fL (35.1-46.3); Red Blood Cell Count 3.73 M/mm3 (3.80-5.20)
== END ==
LOC: LAB SHORT 17:21 → LAB 17:21
PROVIDERS: Obstetrics & Gynecology
DX: O34.211 Maternal care for low transverse scar from previous cesarean delivery (principal); O09.90 Supervision of high risk pregnancy, unspecified, unspecified trimester
CPT/HCPCS: 82950; 85025

== ENCOUNTER 2024-02-27 20:00 | Inpatient (IN) | payer OTHER ==
[~2024-02-27] VITALS: Ht 160 cm; Wt 101.6 kg
[2024-02-27] VITALS (8 sets, daily range): BP systolic 140–179; BP diastolic 75–100
[~2024-02-27 20:00] MED LIST changes: -AMLO10 PO; -ASTAGRAF XL5 MG PO; -PRED5 PO; -SERT50 PO
[2024-02-27] MEDS ORDERED: Lactated Ringer's 1,000 ML IV ONE (21:05)
[2024-02-27] MEDS ORDERED: CefTRIAXone Sodium 2,000 MG in NS 100 ML IV ONE (21:05)
[2024-02-27 21:35] LABS: Source, Urine Clean Catch
[2024-02-27] MEDS ORDERED: Acetaminophen 500 MG Tab PO PRN (21:40)
[2024-02-27 21:46] LABS: Appearance, Urine Turbid (Clear); Bilirubin, Urine Neg (Neg); Blood, Urine 5+ (Neg); Color, Urine Yellow (P-Yellow); Glucose Qualitative, Urine Neg (Neg); Ketones, Urine 3+ (Neg); Leukocyte Esterase, Urine 3+ (Neg); Nitrite, Urine Neg (Neg); Protein, Urine 4+ (Neg); Urobilinogen, Urine NORM (Normal)
[2024-02-27] MEDS ORDERED: Famotidine 20 MG Tab PO SCH (21:50)
[2024-02-27 21:57] LABS: Bacteria Mod /hpf; Squamous Epithelial Cells Few /hpf (Few); White Blood Cells, Urine TNTC /hpf (0-5)
[2024-02-27 22:04] LABS: BASOPHILS ABSOLUTE AUTO 0.03 K/mm3 (0.00-0.23); BASOPHILS PERCENT AUTO 0 % (0-2); EOSINOPHILS ABSOLUTE AUTO 0.01 K/mm3 (0.00-0.68); EOSINOPHILS PERCENT AUTO 0 % (0-6); Hematocrit 38.9 % (33.0-51.0); Hemoglobin 13.4 g/dL (11.5-16.0); IMMATURE GRAN PERCENT AUTO 1 % (0-1); LYMPHOCYTES PERCENT AUTO 6 % (21-46); MONOCYTES ABSOLUTE AUTO 0.97 K/mm3 (0.16-1.47); MONOCYTES PERCENT AUTO 6 % (4-13); Mean Corpuscular HGB 31.9 pg (26.0-34.0); Mean Corpuscular HGB Conc 34.4 g/dL (31.5-36.5); Mean Corpuscular Volume 93 fL (80-100); Mean Platelet Volume 9.4 fL (9.1-12.4); NEUTROPHILS ABSOLUTE AUTO 14.55 K/mm3 (1.96-9.15); NEUTROPHILS PERCENT AUTO 87 % (41-73); Platelet Count 231 K/mm3 (150-400); RDW Coefficient Variation 14.2 % (11.7-14.2); RDW Standard Deviation 48.1 fL (35.1-46.3); White Blood Cell Count 16.66 K/mm3 (4.00-11.30)
[2024-02-27 22:24] LABS: Albumin, Blood 2.6 g/dL (3.4-5.0); Albumin/Globulin Ratio 0.6 (0.8-1.8); Bilirubin, Total 1.1 mg/dL (0.1-1.0); Bun/Creatinine Ratio 14.2 (12.0-20.0); Calcium, Blood 10.7 mg/dL (8.5-10.1); Creatinine, Blood 0.77 mg/dL (0.40-1.00); Globulin, Blood 4.5 g/dL (2.2-4.0); Potassium, Blood 4.2 mmol/L (3.5-5.5); Total Protein, Blood 7.1 g/dL (6.4-8.2)
[2024-02-27] MEDS ORDERED: AMLO10 PO (22:41)
[2024-02-27] MEDS ORDERED: SERT50 PO (22:42)
[2024-02-27] MEDS ORDERED: ASTAGRAF XL5 MG PO (22:44)
[2024-02-27] MEDS ORDERED: PRED5 PO (22:48)
[2024-02-27] MEDS ORDERED: Ondansetron HCl 2 MG / ML 2ML Vial IV PRN (23:10)
[2024-02-27] MEDS ORDERED: Lactated Ringer's 1,000 ML IV SCH (23:15)
[2024-02-27] MEDS ORDERED: HyDROXyzine HCl 25 MG Tab PO PRN (23:15)
[2024-02-27] MEDS ORDERED: AzaTHIOprine 50 MG Tab PO SCH (23:28)
[2024-02-28] VITALS (11 sets, daily range): BP systolic 131–164; BP diastolic 65–100
[2024-02-28] MEDS ORDERED: Sertraline HCl 50 MG Tab PO SCH ×3 (00:15→21:00)
[2024-02-28] MEDS ORDERED: Omeprazole 20 MG CapCR PO SCH (06:00)
--- NOTE | 2024-02-28 08:36 | NUR ---
PT DECLINES NEEDING HYDROXYSINE AT THIS TIME
--- NOTE | 2024-02-28 08:49 | NUR ---
"Spiritual Care | Pt. Request Pt. is awake in bed and welcomes my visit. Pt. is pleasant. Spouse is at bedside. Pt. does not display evidence of anxiety, and through theraputic listening support the Pt. Pt. verbalized a previous history of pre-term babies she has delivered, but again displays no evidence of anxiety for this hospitalization. Considered matters of yifan, family and belief. Prayed with Pt. and spouse. Both verbalized gratitude for the spiritual care visit."
--- NOTE | 2024-02-28 08:59 | NUR ---
PT STAES SHE DOES NOT HAVE HER TACROLIMUS MEDICDATION, AT BEDSIDE STATES HE NEEDS TO GO HOME TO GET IT, PT NORMALLY TAKES MEDICATION BETWEEN 8-9AM, ENCOURAGED TO GO DIRECT MAIL CLERK MEDICATION NOW IT WILL TAKE 1 HR FOR [address]IME TO DRIVE HOME AND RETURN BACK TO [facility] HE STATES HE WILL
[2024-02-28] MEDS ORDERED: Prenatal Vit/FE Fumarate/FA 1 Tab PO SCH (09:00)
[2024-02-28] MEDS ORDERED: TACROLIMUS 4 MG PO SCH ×2 (09:00→10:49)
[2024-02-28] MEDS ORDERED: Famotidine 20 MG Tab PO SCH (09:00)
[2024-02-28] MEDS ORDERED: AmLODIPine Besylate 5 MG Tab PO SCH (09:00)
[2024-02-28] MEDS ORDERED: Potassium Chloride 20 MEQ TabCR PO SCH (09:00)
[2024-02-28] MEDS ORDERED: PredniSONE 5 MG Tab PO SCH (09:00)
[2024-02-28] MEDS ORDERED: TACROLIMUS 1 MG PO SCH (10:51)
--- NOTE | 2024-02-28 13:05 | NUR ---
PT UP TO CHAIR IN ROOM AFTER USING BATHROOM, DENIES UC OR PAIN AT THIS TIME
--- NOTE | 2024-02-28 15:30 | NUR ---
PT REMAINS SLEEPING
[2024-02-28 17:10] LABS: BASOPHILS ABSOLUTE AUTO 0.03 K/mm3 (0.00-0.23); BASOPHILS PERCENT AUTO 0 % (0-2); EOSINOPHILS ABSOLUTE AUTO 0.08 K/mm3 (0.00-0.68); EOSINOPHILS PERCENT AUTO 1 % (0-6); Hematocrit 33.7 % (33.0-51.0); Hemoglobin 11.6 g/dL (11.5-16.0); IMMATURE GRAN ABSOLUTE AUTO 0.05 K/mm3 (0.00-0.10); IMMATURE GRAN PERCENT AUTO 1 % (0-1); LYMPHOCYTES ABSOLUTE AUTO 1.07 K/mm3 (0.84-5.20); LYMPHOCYTES PERCENT AUTO 11 % (21-46); MONOCYTES ABSOLUTE AUTO 0.64 K/mm3 (0.16-1.47); MONOCYTES PERCENT AUTO 7 % (4-13); Mean Corpuscular HGB 31.8 pg (26.0-34.0); Mean Corpuscular HGB Conc 34.4 g/dL (31.5-36.5); Mean Corpuscular Volume 92 fL (80-100); Mean Platelet Volume 9.4 fL (9.1-12.4); NEUTROPHILS ABSOLUTE AUTO 7.76 K/mm3 (1.96-9.15); NEUTROPHILS PERCENT AUTO 81 % (41-73); Platelet Count 168 K/mm3 (150-400); RDW Coefficient Variation 14.2 % (11.7-14.2); Red Blood Cell Count 3.65 M/mm3 (3.80-5.20); White Blood Cell Count 9.63 K/mm3 (4.00-11.30)
[2024-02-28] MEDS ORDERED: HydrALAZINE HCl 10 MG Tab PO SCH (21:00)
[2024-02-28] MEDS ORDERED: CefTRIAXone Sodium 2,000 MG in NS 100 ML IV SCH (22:20)
[2024-02-29] VITALS (8 sets, daily range): BP systolic 123–150; BP diastolic 64–81
[2024-02-29 06:25] LABS: Albumin, Blood 1.8 g/dL (3.4-5.0); Anion Gap 11 mmol/L (3-11); Blood Urea Nitrogen 11 mg/dL (8-24); Bun/Creatinine Ratio 16.4 (12.0-20.0); CO2, Blood 21 mmol/L (21-32); Calcium, Blood 8.8 mg/dL (8.5-10.1); Chloride, Blood 110 mmol/L (98-108); Creatinine, Blood 0.67 mg/dL (0.40-1.00); Glomerular Filtration Rate 118 (60-); Glucose, Blood 100 mg/dL (70-99); Phosphorus, Blood 2.2 mg/dL (2.5-4.9); Potassium, Blood 3.9 mmol/L (3.5-5.5); Sodium, Blood 138 mmol/L (136-145)
--- NOTE | 2024-02-29 16:30 | NUR ---
PT UP TO SHOWER
--- NOTE | 2024-02-29 18:30 | NUR ---
DR AARON IN ROOM DISCUSSING PLAN OF CARE AND TRANSFER TO [place] IN AM FOR HIGHER LEVEL OF CARE, DR KERR ROUNDED ON PATIENT AND AGREES WITH CURRENT PLAN OF CARE
[2024-02-29] MEDS ORDERED: HydrALAZINE HCl 25 MG Tab PO SCH (20:00)
[2024-03-01 00:34] VITALS: BP 138/69
[2024-03-01 02:27] VITALS: BP 147/70
[2024-03-01 04:34] VITALS: BP 128/64
[2024-03-01 05:50] LABS: BASOPHILS ABSOLUTE AUTO 0.02 K/mm3 (0.00-0.23); BASOPHILS PERCENT AUTO 0 % (0-2); EOSINOPHILS ABSOLUTE AUTO 0.09 K/mm3 (0.00-0.68); EOSINOPHILS PERCENT AUTO 1 % (0-6); Hematocrit 31.6 % (33.0-51.0); Hemoglobin 10.5 g/dL (11.5-16.0); IMMATURE GRAN ABSOLUTE AUTO 0.05 K/mm3 (0.00-0.10); IMMATURE GRAN PERCENT AUTO 1 % (0-1); LYMPHOCYTES ABSOLUTE AUTO 1.07 K/mm3 (0.84-5.20); LYMPHOCYTES PERCENT AUTO 15 % (21-46); MONOCYTES ABSOLUTE AUTO 0.67 K/mm3 (0.16-1.47); MONOCYTES PERCENT AUTO 10 % (4-13); Mean Corpuscular HGB 31.4 pg (26.0-34.0); Mean Corpuscular HGB Conc 33.2 g/dL (31.5-36.5); Mean Corpuscular Volume 95 fL (80-100); Mean Platelet Volume 9.2 fL (9.1-12.4); NEUTROPHILS ABSOLUTE AUTO 5.13 K/mm3 (1.96-9.15); NEUTROPHILS PERCENT AUTO 73 % (41-73); Platelet Count 138 K/mm3 (150-400); RDW Coefficient Variation 14.1 % (11.7-14.2); RDW Standard Deviation 48.1 fL (35.1-46.3); Red Blood Cell Count 3.34 M/mm3 (3.80-5.20); White Blood Cell Count 7.03 K/mm3 (4.00-11.30)
[2024-03-01 06:24] LABS: Alanine Aminotransfer (ALT/SGP 7 U/L (12-78); Albumin, Blood 1.8 g/dL (3.4-5.0); Albumin/Globulin Ratio 0.5 (0.8-1.8); Alk Phos 113 U/L (50-136); Anion Gap 12 mmol/L (3-11); Aspartate Aminotrans (AST/SGOT 16 U/L (12-37); Bilirubin, Direct <0.1 mg/dL (0.0-0.3); Bilirubin, Indirect Unable to Calculate mg/dL (0.1-0.7); Bilirubin, Total 0.3 mg/dL (0.1-1.0); Blood Urea Nitrogen 9 mg/dL (8-24); Bun/Creatinine Ratio 13.2 (12.0-20.0); CO2, Blood 20 mmol/L (21-32); Calcium, Blood 8.7 mg/dL (8.5-10.1); Chloride, Blood 111 mmol/L (98-108); Creatinine, Blood 0.68 mg/dL (0.40-1.00); Globulin, Blood 3.5 g/dL (2.2-4.0); Glomerular Filtration Rate 117 (60-); Glucose, Blood 78 mg/dL (70-99); Phosphorus, Blood 2.7 mg/dL (2.5-4.9); Potassium, Blood 3.8 mmol/L (3.5-5.5); Sodium, Blood 139 mmol/L (136-145); Total Protein, Blood 5.3 g/dL (6.4-8.2)
--- NOTE | 2024-03-01 07:13 | NUR ---
REPORT TO TRAVIS HIGGINS AT [facility]. PLAN FOR PT TO GO TO ROOM 5122.
[2024-03-01 07:25] VITALS: BP 155/81
[2024-03-01 07:37] VITALS: BP 143/72
[2024-03-01 23:53] LABS: TACROLIMUS BY HPLC-MS/MS 3.2 ng/mL
== END 2024-03-01 08:29 | disposition short-term general hospital (02) | DRG 832 ==
LOC: OBS 20:00 → BC 20:00 → OBS 21:18 → BC 21:19 → OBS 21:19 → BC 02-29 20:02
PROVIDERS: Hospitalist; Obstetrics & Gynecology; ADMIT Obstetrics & Gynecology
DX: O11.3 Pre-existing hypertension with pre-eclampsia, third trimester (principal); N39.0 Urinary tract infection, site not specified; O23.43 Unspecified infection of urinary tract in pregnancy, third trimester; Z94.0 Kidney transplant status; Z3A.34 34 weeks gestation of pregnancy; F41.3 Other mixed anxiety disorders; B96.20 Unspecified Escherichia coli [E. coli] as the cause of diseases classified elsewhere; O99.613 Diseases of the digestive system complicating pregnancy, third trimester; K21.9 Gastro-esophageal reflux disease without esophagitis; O99.343 Other mental disorders complicating pregnancy, third trimester; Z98.891 History of uterine scar from previous surgery; Z99.2 Dependence on renal dialysis; Z79.51 Long term (current) use of inhaled steroids; Z79.899 Other long term (current) drug therapy
CPT/HCPCS: 36415; 59025; 80053; 80069; 80197; 81001; 81003; 82248; 82570; 84156; 85025; 87077; 87086; 87186; 99214; A9270; J0696; J2405; J7120; J7500; J7512

== ENCOUNTER → 2024-02-27 | Outpatient (CLI) | payer OTHER ==
[~2024-02-27] MED LIST changes: +AMLO10 PO; +ASTAGRAF XL5 MG PO; +PRED5 PO; +SERT50 PO
[2024-02-27 17:14] LABS: Protein, Urine Quantitative 673.7 mg/dL (0.0-11.9)
== END | disposition home or self-care (01) ==
LOC: LAB SHORT 13:26 → LAB 13:26
PROVIDERS: Obstetrics & Gynecology
DX: Z48.22 Encounter for aftercare following kidney transplant (principal)
CPT/HCPCS: 81050; 84156

== ENCOUNTER 2024-04-05 02:31 | Day surgery (SDC) | payer OTHER ==
[~2024-04-05 02:31] MED LIST changes: +AMLO10 PO; +ASTAGRAF XL5 MG PO; +PRED5 PO; +SERT50 PO
[2024-04-05] MEDS ORDERED: NS IV SCH (06:00)
[2024-04-05 14:23] VITALS: BP 148/82
--- NOTE | 2024-04-05 17:11 | NUR ---
AFTER MULTIPLE ATTEMPTS TO OBTAIN AN IV WERE UNSUCCESSFUL, PATIENT CHOSE TO LEAVE AND RESCHEDULE WITHOUT RECIEVING HER MEDICATION TODAY
[2024-04-05] MEDS ORDERED: ENVARSUS XR4 MG PO (17:24)
[2024-04-05] MEDS ORDERED: AZAT50 PO (17:25)
== END 2024-04-05 14:54 | disposition home or self-care (01) ==
LOC: ATC 02:31
DX: Z48.22 Encounter for aftercare following kidney transplant (principal); I12.0 Hypertensive chronic kidney disease with stage 5 chronic kidney disease or end stage renal disease; N18.6 End stage renal disease; Z94.0 Kidney transplant status
CPT/HCPCS: 99212

== ENCOUNTER 2024-05-08 00:34 | Day surgery (SDC) | payer OTHER ==
[~2024-05-08 00:34] MED LIST changes: +AZAT50 PO; +BELATACEPT IV SCH; +ENVARSUS XR4 MG PO; +NS IV SCH
[2024-05-08 15:15] VITALS: BP 151/97
[2024-05-08 16:00] LABS: BASOPHILS ABSOLUTE AUTO 0.01 K/mm3 (0.00-0.23); BASOPHILS PERCENT AUTO 0 % (0-2); EOSINOPHILS ABSOLUTE AUTO 0.04 K/mm3 (0.00-0.68); EOSINOPHILS PERCENT AUTO 1 % (0-6); Hematocrit 40.2 % (33.0-51.0); IMMATURE GRAN ABSOLUTE AUTO 0.05 K/mm3 (0.00-0.10); IMMATURE GRAN PERCENT AUTO 1 % (0-1); LYMPHOCYTES PERCENT AUTO 13 % (21-46); MONOCYTES ABSOLUTE AUTO 0.39 K/mm3 (0.16-1.47); MONOCYTES PERCENT AUTO 5 % (4-13); Mean Corpuscular HGB Conc 34.8 g/dL (31.5-36.5); Mean Corpuscular Volume 89 fL (80-100); Mean Platelet Volume 9.1 fL (9.1-12.4); NEUTROPHILS ABSOLUTE AUTO 6.29 K/mm3 (1.96-9.15); NEUTROPHILS PERCENT AUTO 81 % (41-73); Platelet Count 244 K/mm3 (150-400); RDW Coefficient Variation 12.8 % (11.7-14.2); RDW Standard Deviation 41.5 fL (35.1-46.3); Red Blood Cell Count 4.52 M/mm3 (3.80-5.20); White Blood Cell Count 7.78 K/mm3 (4.00-11.30)
[2024-05-08 16:15] LABS: Albumin, Blood 3.2 g/dL (3.4-5.0); Albumin/Globulin Ratio 0.9 (0.8-1.8); Bilirubin, Total 0.5 mg/dL (0.1-1.0); Bun/Creatinine Ratio 21.9 (12.0-20.0); Calcium, Blood 9.4 mg/dL (8.5-10.1); Creatinine, Blood 0.73 mg/dL (0.40-1.00); Globulin, Blood 3.4 g/dL (2.2-4.0); Magnesium, Blood 1.3 mg/dL (1.6-2.4); Potassium, Blood 4.5 mmol/L (3.5-5.5); Total Protein, Blood 6.6 g/dL (6.4-8.2)
[2024-05-08 16:50] VITALS: BP 126/80
[2024-05-08 17:29] LABS: Creatinine, Urine Random 73.6 mg/dL (27.00-270.00); Protein, Urine Random 96.8 mg/dL (0.0-11.9); Protein/Creat Ratio, Ur Random 1.3
[2024-05-09 22:52] LABS: TACROLIMUS BY HPLC-MS/MS 26.7 ng/mL
[2024-05-22] MEDS ORDERED: NS IV SCH (19:05)
[2024-05-22] MEDS ORDERED: BELATACEPT IV SCH (19:05)
== END 2024-05-08 16:55 | disposition home or self-care (01) ==
LOC: ATC 00:34
PROVIDERS: Hospitalist; Internal Medicine Nephrology
DX: Z48.22 Encounter for aftercare following kidney transplant (principal); Z94.0 Kidney transplant status; I12.9 Hypertensive chronic kidney disease with stage 1 through stage 4 chronic kidney disease, or unspecified chronic kidney disease; N18.9 Chronic kidney disease, unspecified; N25.81 Secondary hyperparathyroidism of renal origin; Z88.8 Allergy status to other drugs, medicaments and biological substances; Z79.899 Other long term (current) drug therapy
CPT/HCPCS: 80053; 80197; 82570; 83735; 84100; 84156; 85025; 96365; J0485; J1642

== ENCOUNTER 2024-06-19 03:32 | Day surgery (SDC) | payer OTHER ==
[~2024-06-19 03:32] MED LIST changes: -BELATACEPT IV SCH; -NS IV SCH
[2024-06-19] MEDS ORDERED: BELATACEPT IV SCH (06:00)
[2024-06-19] MEDS ORDERED: NS IV SCH (06:00)
[2024-06-19 11:54] VITALS: BP 138/93
[2024-06-19 12:13] LABS: BASOPHILS ABSOLUTE AUTO 0.02 K/mm3 (0.00-0.23); BASOPHILS PERCENT AUTO 0 % (0-2); EOSINOPHILS ABSOLUTE AUTO 0.19 K/mm3 (0.00-0.68); EOSINOPHILS PERCENT AUTO 3 % (0-6); Hematocrit 40.6 % (33.0-51.0); Hemoglobin 14.5 g/dL (11.5-16.0); IMMATURE GRAN ABSOLUTE AUTO 0.02 K/mm3 (0.00-0.10); IMMATURE GRAN PERCENT AUTO 0 % (0-1); LYMPHOCYTES ABSOLUTE AUTO 1.89 K/mm3 (0.84-5.20); LYMPHOCYTES PERCENT AUTO 27 % (21-46); MONOCYTES ABSOLUTE AUTO 0.61 K/mm3 (0.16-1.47); MONOCYTES PERCENT AUTO 9 % (4-13); Mean Corpuscular HGB 30.1 pg (26.0-34.0); Mean Corpuscular HGB Conc 35.7 g/dL (31.5-36.5); Mean Corpuscular Volume 84 fL (80-100); Mean Platelet Volume 9.2 fL (9.1-12.4); NEUTROPHILS ABSOLUTE AUTO 4.31 K/mm3 (1.96-9.15); NEUTROPHILS PERCENT AUTO 61 % (41-73); Platelet Count 255 K/mm3 (150-400); RDW Standard Deviation 43.1 fL (35.1-46.3); Red Blood Cell Count 4.81 M/mm3 (3.80-5.20); White Blood Cell Count 7.04 K/mm3 (4.00-11.30)
[2024-06-19 12:36] LABS: Albumin, Blood 3.6 g/dL (3.4-5.0); Bilirubin, Total 0.5 mg/dL (0.1-1.0); Bun/Creatinine Ratio 21.8 (12.0-20.0); Calcium, Blood 9.4 mg/dL (8.5-10.1); Creatinine, Blood 0.83 mg/dL (0.40-1.00); Globulin, Blood 3.5 g/dL (2.2-4.0); Magnesium, Blood 1.5 mg/dL (1.6-2.4); Phosphorus, Blood 2.9 mg/dL (2.5-4.9); Potassium, Blood 4.2 mmol/L (3.5-5.5); Total Protein, Blood 7.1 g/dL (6.4-8.2)
[2024-06-19 12:57] LABS: Creatinine, Urine Random 78.9 mg/dL (27.00-270.00); Protein, Urine Random 57.7 mg/dL (0.0-11.9); Protein/Creat Ratio, Ur Random 0.7
[2024-06-21 05:32] LABS: TACROLIMUS BY HPLC-MS/MS 5.9 ng/mL
== END 2024-06-19 12:41 | disposition home or self-care (01) ==
LOC: ATC 03:32
PROVIDERS: Internal Medicine Nephrology
DX: Z48.22 Encounter for aftercare following kidney transplant (principal); I10 Essential (primary) hypertension; Z94.0 Kidney transplant status; Z79.52 Long term (current) use of systemic steroids; Z79.899 Other long term (current) drug therapy; Z88.8 Allergy status to other drugs, medicaments and biological substances
CPT/HCPCS: 80053; 80197; 82570; 83735; 84100; 84156; 85025; 96365; J0485; J1642

== ENCOUNTER 2024-07-04 05:00 | Day surgery (SDC) | payer OTHER ==
[2024-07-04] MEDS ORDERED: NS IV SCH (06:00)
[2024-07-04] MEDS ORDERED: BELATACEPT IV SCH (06:00)
[2024-07-04 10:12] VITALS: BP 150/107
[2024-07-04 10:42] LABS: BASOPHILS ABSOLUTE AUTO 0.02 K/mm3 (0.00-0.23); BASOPHILS PERCENT AUTO 0 % (0-2); EOSINOPHILS ABSOLUTE AUTO 0.12 K/mm3 (0.00-0.68); EOSINOPHILS PERCENT AUTO 1 % (0-6); Hematocrit 38.8 % (33.0-51.0); Hemoglobin 13.9 g/dL (11.5-16.0); IMMATURE GRAN ABSOLUTE AUTO 0.02 K/mm3 (0.00-0.10); IMMATURE GRAN PERCENT AUTO 0 % (0-1); LYMPHOCYTES ABSOLUTE AUTO 2.36 K/mm3 (0.84-5.20); LYMPHOCYTES PERCENT AUTO 24 % (21-46); MONOCYTES ABSOLUTE AUTO 0.67 K/mm3 (0.16-1.47); MONOCYTES PERCENT AUTO 7 % (4-13); Mean Corpuscular HGB 30.3 pg (26.0-34.0); Mean Corpuscular HGB Conc 35.8 g/dL (31.5-36.5); Mean Corpuscular Volume 85 fL (80-100); Mean Platelet Volume 9.2 fL (9.1-12.4); NEUTROPHILS ABSOLUTE AUTO 6.63 K/mm3 (1.96-9.15); NEUTROPHILS PERCENT AUTO 68 % (41-73); Platelet Count 264 K/mm3 (150-400); RDW Coefficient Variation 13.9 % (11.7-14.2); RDW Standard Deviation 42.5 fL (35.1-46.3); Red Blood Cell Count 4.59 M/mm3 (3.80-5.20); White Blood Cell Count 9.82 K/mm3 (4.00-11.30)
[2024-07-04 11:20] LABS: Albumin, Blood 3.5 g/dL (3.4-5.0); Bilirubin, Total 0.5 mg/dL (0.1-1.0); Bun/Creatinine Ratio 21.5 (12.0-20.0); Calcium, Blood 9.7 mg/dL (8.5-10.1); Creatinine, Blood 0.75 mg/dL (0.40-1.00); Globulin, Blood 3.5 g/dL (2.2-4.0); Magnesium, Blood 1.5 mg/dL (1.6-2.4); Phosphorus, Blood 2.7 mg/dL (2.5-4.9); Potassium, Blood 4.1 mmol/L (3.5-5.5)
[2024-07-04 13:58] LABS: Protein/Creat Ratio, Ur Random 0.6
== END 2024-07-04 11:31 | disposition home or self-care (01) ==
LOC: ATC 05:00
PROVIDERS: Internal Medicine Nephrology
DX: Z48.22 Encounter for aftercare following kidney transplant (principal); I10 Essential (primary) hypertension; Z94.0 Kidney transplant status; Z79.899 Other long term (current) drug therapy; Z88.8 Allergy status to other drugs, medicaments and biological substances
CPT/HCPCS: 80053; 80197; 82570; 83735; 84100; 84156; 85025; 96365; J0485; J1642

== ENCOUNTER 2024-07-19 03:39 | Day surgery (SDC) | payer OTHER ==
[2024-07-19] MEDS ORDERED: BELATACEPT IV SCH (06:00)
[2024-07-19] MEDS ORDERED: NS IV SCH (06:00)
[2024-07-19 10:43] VITALS: BP 148/100
[2024-07-19 11:25] LABS: BASOPHILS ABSOLUTE AUTO 0.03 K/mm3 (0.00-0.23); BASOPHILS PERCENT AUTO 0 % (0-2); EOSINOPHILS PERCENT AUTO 1 % (0-6); Hematocrit 39.7 % (33.0-51.0); Hemoglobin 13.8 g/dL (11.5-16.0); IMMATURE GRAN ABSOLUTE AUTO 0.05 K/mm3 (0.00-0.10); IMMATURE GRAN PERCENT AUTO 1 % (0-1); LYMPHOCYTES ABSOLUTE AUTO 1.61 K/mm3 (0.84-5.20); LYMPHOCYTES PERCENT AUTO 20 % (21-46); MONOCYTES ABSOLUTE AUTO 0.86 K/mm3 (0.16-1.47); MONOCYTES PERCENT AUTO 11 % (4-13); Mean Corpuscular HGB 29.9 pg (26.0-34.0); Mean Corpuscular HGB Conc 34.8 g/dL (31.5-36.5); Mean Corpuscular Volume 86 fL (80-100); Mean Platelet Volume 9.1 fL (9.1-12.4); NEUTROPHILS ABSOLUTE AUTO 5.32 K/mm3 (1.96-9.15); NEUTROPHILS PERCENT AUTO 67 % (41-73); Platelet Count 248 K/mm3 (150-400); RDW Coefficient Variation 13.7 % (11.7-14.2); RDW Standard Deviation 42.2 fL (35.1-46.3); Red Blood Cell Count 4.61 M/mm3 (3.80-5.20); White Blood Cell Count 7.97 K/mm3 (4.00-11.30)
[2024-07-19 11:55] LABS: Albumin, Blood 3.6 g/dL (3.4-5.0); Bilirubin, Total 0.5 mg/dL (0.1-1.0); Bun/Creatinine Ratio 20.4 (12.0-20.0); Calcium, Blood 9.7 mg/dL (8.5-10.1); Creatinine, Blood 0.78 mg/dL (0.40-1.00); Globulin, Blood 3.6 g/dL (2.2-4.0); Magnesium, Blood 1.4 mg/dL (1.6-2.4); Phosphorus, Blood 2.6 mg/dL (2.5-4.9); Total Protein, Blood 7.2 g/dL (6.4-8.2)
[2024-07-19 12:08] LABS: Protein, Urine Random 52.6 mg/dL (0.0-11.9); Protein/Creat Ratio, Ur Random 0.4
[2024-07-21 13:51] LABS: TACROLIMUS BY HPLC-MS/MS 9.4 ng/mL
--- NOTE | 2024-07-22 18:36 | NUR ---
Lab results from 07/19/[address] Delaney and Dr. Alston's offices.
== END 2024-07-19 12:10 | disposition home or self-care (01) ==
LOC: ATC 03:39
PROVIDERS: Internal Medicine Nephrology
DX: Z48.22 Encounter for aftercare following kidney transplant (principal); I10 Essential (primary) hypertension; Z94.0 Kidney transplant status; Z79.52 Long term (current) use of systemic steroids; Z79.899 Other long term (current) drug therapy; Z88.8 Allergy status to other drugs, medicaments and biological substances
CPT/HCPCS: 80053; 80197; 82570; 83735; 84100; 84156; 85025; 96365; J0485; J1642

== ENCOUNTER 2024-08-02 03:36 | Day surgery (SDC) | payer OTHER ==
--- NOTE | 2024-08-01 11:43 | NUR ---
CANCELLED AFTER HER SCHEDULED APPT TIME
[~2024-08-02 03:36] MED LIST changes: +BELATACEPT IV SCH; +NS IV SCH
[2024-08-02] MEDS ORDERED: NS IV SCH (09:05)
[2024-08-02] MEDS ORDERED: BELATACEPT IV SCH (09:05)
[2024-08-02 14:57] VITALS: BP 154/96
[2024-08-02] MEDS ORDERED: CEFD300 PO (14:57)
[2024-08-02 15:31] LABS: BASOPHILS ABSOLUTE AUTO 0.01 K/mm3 (0.00-0.23); BASOPHILS PERCENT AUTO 0 % (0-2); EOSINOPHILS ABSOLUTE AUTO 0.08 K/mm3 (0.00-0.68); EOSINOPHILS PERCENT AUTO 1 % (0-6); Hematocrit 36.5 % (33.0-51.0); Hemoglobin 12.6 g/dL (11.5-16.0); IMMATURE GRAN ABSOLUTE AUTO 0.04 K/mm3 (0.00-0.10); IMMATURE GRAN PERCENT AUTO 1 % (0-1); LYMPHOCYTES ABSOLUTE AUTO 1.93 K/mm3 (0.84-5.20); LYMPHOCYTES PERCENT AUTO 27 % (21-46); MONOCYTES ABSOLUTE AUTO 0.41 K/mm3 (0.16-1.47); MONOCYTES PERCENT AUTO 6 % (4-13); Mean Corpuscular HGB 29.3 pg (26.0-34.0); Mean Corpuscular HGB Conc 34.5 g/dL (31.5-36.5); Mean Corpuscular Volume 85 fL (80-100); Mean Platelet Volume 9.2 fL (9.1-12.4); NEUTROPHILS ABSOLUTE AUTO 4.57 K/mm3 (1.96-9.15); NEUTROPHILS PERCENT AUTO 65 % (41-73); Platelet Count 348 K/mm3 (150-400); RDW Standard Deviation 39.6 fL (35.1-46.3); White Blood Cell Count 7.04 K/mm3 (4.00-11.30)
[2024-08-02 16:02] LABS: Albumin, Blood 3.5 g/dL (3.4-5.0); Albumin/Globulin Ratio 0.9 (0.8-1.8); Bilirubin, Total 0.5 mg/dL (0.1-1.0); Bun/Creatinine Ratio 19.6 (12.0-20.0); Creatinine, Blood 1.02 mg/dL (0.40-1.00); Globulin, Blood 4.1 g/dL (2.2-4.0); Magnesium, Blood 1.4 mg/dL (1.6-2.4); Phosphorus, Blood 2.3 mg/dL (2.5-4.9); Potassium, Blood 4.3 mmol/L (3.5-5.5); Total Protein, Blood 7.6 g/dL (6.4-8.2); Uric Acid, Blood 6.7 mg/dL (2.6-6.0)
[2024-08-02 19:03] LABS: Protein, Urine Random 66.4 mg/dL (0.0-11.9); Protein/Creat Ratio, Ur Random 0.4
[2024-08-04 08:29] LABS: TACROLIMUS BY HPLC-MS/MS 16.8 ng/mL
== END 2024-08-02 16:09 | disposition home or self-care (01) ==
LOC: ATC 03:36
PROVIDERS: Internal Medicine Nephrology
DX: Z48.22 Encounter for aftercare following kidney transplant (principal); D89.9 Disorder involving the immune mechanism, unspecified; I10 Essential (primary) hypertension; N25.81 Secondary hyperparathyroidism of renal origin; Z79.899 Other long term (current) drug therapy; Z88.8 Allergy status to other drugs, medicaments and biological substances; Z94.0 Kidney transplant status
CPT/HCPCS: 80053; 80197; 82570; 83735; 83970; 84100; 84156; 84550; 85025; 96365; J0485; J1642

== ENCOUNTER 2024-09-10 03:44 | Day surgery (SDC) | payer OTHER ==
[~2024-09-10 03:44] MED LIST changes: -BELATACEPT IV SCH; -NS IV SCH
[2024-09-10] MEDS ORDERED: BELATACEPT IV SCH (06:00)
[2024-09-10] MEDS ORDERED: NS IV SCH (06:00)
[2024-09-10 15:45] VITALS: BP 144/72
[2024-09-10 16:31] LABS: BASOPHILS ABSOLUTE AUTO 0.03 K/mm3 (0.00-0.23); BASOPHILS PERCENT AUTO 0 % (0-2); EOSINOPHILS ABSOLUTE AUTO 0.22 K/mm3 (0.00-0.68); EOSINOPHILS PERCENT AUTO 2 % (0-6); Hematocrit 36.4 % (33.0-51.0); Hemoglobin 12.3 g/dL (11.5-16.0); IMMATURE GRAN ABSOLUTE AUTO 0.04 K/mm3 (0.00-0.10); IMMATURE GRAN PERCENT AUTO 0 % (0-1); LYMPHOCYTES ABSOLUTE AUTO 1.83 K/mm3 (0.84-5.20); LYMPHOCYTES PERCENT AUTO 18 % (21-46); MONOCYTES ABSOLUTE AUTO 0.59 K/mm3 (0.16-1.47); MONOCYTES PERCENT AUTO 6 % (4-13); Mean Corpuscular HGB 27.8 pg (26.0-34.0); Mean Corpuscular HGB Conc 33.8 g/dL (31.5-36.5); Mean Corpuscular Volume 82 fL (80-100); Mean Platelet Volume 9.3 fL (9.1-12.4); NEUTROPHILS ABSOLUTE AUTO 7.32 K/mm3 (1.96-9.15); NEUTROPHILS PERCENT AUTO 73 % (41-73); Platelet Count 330 K/mm3 (150-400); RDW Coefficient Variation 12.9 % (11.7-14.2); RDW Standard Deviation 38.8 fL (35.1-46.3); Red Blood Cell Count 4.43 M/mm3 (3.80-5.20); White Blood Cell Count 10.03 K/mm3 (4.00-11.30)
[2024-09-10 16:49] LABS: Albumin, Blood 3.5 g/dL (3.4-5.0); Albumin/Globulin Ratio 0.9 (0.8-1.8); Bilirubin, Total 0.4 mg/dL (0.1-1.0); Bun/Creatinine Ratio 27.3 (12.0-20.0); Calcium, Blood 9.5 mg/dL (8.5-10.1); Creatinine, Blood 0.99 mg/dL (0.40-1.00); Globulin, Blood 3.9 g/dL (2.2-4.0); Magnesium, Blood 1.5 mg/dL (1.6-2.4); Phosphorus, Blood 2.6 mg/dL (2.5-4.9); Total Protein, Blood 7.4 g/dL (6.4-8.2); Uric Acid, Blood 6.5 mg/dL (2.6-6.0)
[2024-09-10 16:58] LABS: Protein/Creat Ratio, Ur Random 0.3
[2024-09-13 09:33] LABS: TACROLIMUS BY HPLC-MS/MS 9.8
== END 2024-09-10 16:21 | disposition home or self-care (01) ==
LOC: ATC 03:44
PROVIDERS: Hospitalist; Internal Medicine Nephrology
DX: Z48.22 Encounter for aftercare following kidney transplant (principal); Z94.0 Kidney transplant status; I10 Essential (primary) hypertension; Z79.899 Other long term (current) drug therapy; Z88.8 Allergy status to other drugs, medicaments and biological substances; N25.81 Secondary hyperparathyroidism of renal origin
CPT/HCPCS: 80053; 80197; 82570; 83735; 83970; 84100; 84156; 84550; 85025; 96365; J0485; J1642

== ENCOUNTER 2024-10-10 01:19 | Day surgery (SDC) | payer OTHER ==
[2024-10-10] MEDS ORDERED: NS IV SCH (12:45)
[2024-10-10] MEDS ORDERED: BELATACEPT IV SCH (12:45)
[2024-10-10 14:55] VITALS: BP 134/93
[2024-10-10 15:48] LABS: BASOPHILS ABSOLUTE AUTO 0.02 K/mm3 (0.00-0.23); BASOPHILS PERCENT AUTO 0 % (0-2); EOSINOPHILS ABSOLUTE AUTO 0.11 K/mm3 (0.00-0.68); EOSINOPHILS PERCENT AUTO 1 % (0-6); Hematocrit 35.4 % (33.0-51.0); Hemoglobin 11.4 g/dL (11.5-16.0); IMMATURE GRAN ABSOLUTE AUTO 0.03 K/mm3 (0.00-0.10); IMMATURE GRAN PERCENT AUTO 0 % (0-1); LYMPHOCYTES ABSOLUTE AUTO 2.13 K/mm3 (0.84-5.20); LYMPHOCYTES PERCENT AUTO 27 % (21-46); MONOCYTES ABSOLUTE AUTO 0.64 K/mm3 (0.16-1.47); MONOCYTES PERCENT AUTO 8 % (4-13); Mean Corpuscular HGB 26.3 pg (26.0-34.0); Mean Corpuscular HGB Conc 32.2 g/dL (31.5-36.5); Mean Corpuscular Volume 82 fL (80-100); Mean Platelet Volume 9.1 fL (9.1-12.4); NEUTROPHILS ABSOLUTE AUTO 5.08 K/mm3 (1.96-9.15); NEUTROPHILS PERCENT AUTO 63 % (41-73); Platelet Count 297 K/mm3 (150-400); RDW Coefficient Variation 13.9 % (11.7-14.2); RDW Standard Deviation 40.8 fL (35.1-46.3); Red Blood Cell Count 4.34 M/mm3 (3.80-5.20); White Blood Cell Count 8.01 K/mm3 (4.00-11.30)
[2024-10-10 16:17] LABS: Albumin, Blood 3.6 g/dL (3.4-5.0); Bilirubin, Total 0.3 mg/dL (0.1-1.0); Bun/Creatinine Ratio 22.8 (12.0-20.0); Calcium, Blood 9.5 mg/dL (8.5-10.1); Creatinine, Blood 0.88 mg/dL (0.40-1.00); Globulin, Blood 3.5 g/dL (2.2-4.0); Magnesium, Blood 1.3 mg/dL (1.6-2.4); Phosphorus, Blood 2.6 mg/dL (2.5-4.9); Potassium, Blood 4.1 mmol/L (3.5-5.5); Total Protein, Blood 7.1 g/dL (6.4-8.2); Uric Acid, Blood 4.6 mg/dL (2.6-6.0)
[2024-10-12 06:35] LABS: TACROLIMUS BY HPLC-MS/MS 11.2 ng/mL
== END 2024-10-10 16:20 | disposition home or self-care (01) ==
LOC: ATC 01:19
PROVIDERS: Hospitalist
DX: Z48.22 Encounter for aftercare following kidney transplant (principal); Z94.0 Kidney transplant status; I10 Essential (primary) hypertension; Z79.899 Other long term (current) drug therapy; Z88.8 Allergy status to other drugs, medicaments and biological substances
CPT/HCPCS: 80053; 80197; 83735; 83970; 84100; 84550; 85025; 96365; J0485; J1642

== ENCOUNTER 2024-11-11 09:18 | Day surgery (SDC) | payer OTHER ==
[2024-11-11 14:40] VITALS: BP 137/89
[2024-11-11] MEDS ORDERED: BELATACEPT IV SCH (14:45)
[2024-11-11] MEDS ORDERED: NS IV SCH (14:45)
[2024-11-11] MEDS ORDERED: NULOJIX250 MG IV (15:31)
[2024-11-11] MEDS ORDERED: CARVEDILOL12.5 MG PO (15:32)
[2024-11-11 15:40] LABS: BASOPHILS ABSOLUTE AUTO 0.01 K/mm3 (0.00-0.23); BASOPHILS PERCENT AUTO 0 % (0-2); EOSINOPHILS ABSOLUTE AUTO 0.27 K/mm3 (0.00-0.68); EOSINOPHILS PERCENT AUTO 3 % (0-6); Hematocrit 35.9 % (33.0-51.0); Hemoglobin 11.7 g/dL (11.5-16.0); IMMATURE GRAN ABSOLUTE AUTO 0.03 K/mm3 (0.00-0.10); IMMATURE GRAN PERCENT AUTO 0 % (0-1); LYMPHOCYTES ABSOLUTE AUTO 1.66 K/mm3 (0.84-5.20); LYMPHOCYTES PERCENT AUTO 21 % (21-46); MONOCYTES ABSOLUTE AUTO 0.51 K/mm3 (0.16-1.47); MONOCYTES PERCENT AUTO 6 % (4-13); Mean Corpuscular HGB 25.5 pg (26.0-34.0); Mean Corpuscular HGB Conc 32.6 g/dL (31.5-36.5); Mean Corpuscular Volume 78 fL (80-100); Mean Platelet Volume 9.4 fL (9.1-12.4); NEUTROPHILS ABSOLUTE AUTO 5.47 K/mm3 (1.96-9.15); NEUTROPHILS PERCENT AUTO 69 % (41-73); Platelet Count 305 K/mm3 (150-400); RDW Coefficient Variation 15.4 % (11.7-14.2); RDW Standard Deviation 43.1 fL (35.1-46.3); Red Blood Cell Count 4.59 M/mm3 (3.80-5.20); White Blood Cell Count 7.95 K/mm3 (4.00-11.30)
[2024-11-11 16:04] LABS: Albumin, Blood 3.6 g/dL (3.4-5.0); Albumin/Globulin Ratio 0.9 (0.8-1.8); Bilirubin, Total 0.3 mg/dL (0.1-1.0); Bun/Creatinine Ratio 17.6 (12.0-20.0); Calcium, Blood 9.2 mg/dL (8.5-10.1); Creatinine, Blood 0.91 mg/dL (0.40-1.00); Globulin, Blood 3.9 g/dL (2.2-4.0); Magnesium, Blood 1.6 mg/dL (1.6-2.4); Phosphorus, Blood 2.5 mg/dL (2.5-4.9); Potassium, Blood 3.6 mmol/L (3.5-5.5); Total Protein, Blood 7.5 g/dL (6.4-8.2)
[2024-11-14 00:57] LABS: TACROLIMUS BY HPLC-MS/MS 4.9 ng/mL
== END 2024-11-11 15:48 | disposition home or self-care (01) ==
LOC: ATC 09:18
PROVIDERS: Hospitalist
DX: Z48.22 Encounter for aftercare following kidney transplant (principal); I10 Essential (primary) hypertension; Z79.899 Other long term (current) drug therapy; Z88.8 Allergy status to other drugs, medicaments and biological substances
CPT/HCPCS: 80053; 80197; 83735; 83970; 84100; 84550; 85025; 96365; J0485; J1642

== ENCOUNTER 2024-12-05 14:56 | Inpatient (IN) | payer OTHER ==
[~2024-12-05] VITALS: Ht 165.1 cm; Wt 91.5 kg
[~2024-12-05 14:56] MED LIST changes: -ASTAGRAF XL5 MG PO; +CARVEDILOL12.5 MG PO; +NULOJIX250 MG IV
[2024-12-05 15:35] LABS: BASOPHILS ABSOLUTE AUTO 0.03 K/mm3 (0.00-0.23); BASOPHILS PERCENT AUTO 0 % (0-2); EOSINOPHILS ABSOLUTE AUTO 0.19 K/mm3 (0.00-0.68); EOSINOPHILS PERCENT AUTO 2 % (0-6); Hematocrit 41.5 % (33.0-51.0); Hemoglobin 13.6 g/dL (11.5-16.0); IMMATURE GRAN ABSOLUTE AUTO 0.04 K/mm3 (0.00-0.10); IMMATURE GRAN PERCENT AUTO 0 % (0-1); LYMPHOCYTES ABSOLUTE AUTO 1.67 K/mm3 (0.84-5.20); LYMPHOCYTES PERCENT AUTO 17 % (21-46); MONOCYTES ABSOLUTE AUTO 0.71 K/mm3 (0.16-1.47); MONOCYTES PERCENT AUTO 7 % (4-13); Mean Corpuscular HGB 25.7 pg (26.0-34.0); Mean Corpuscular HGB Conc 32.8 g/dL (31.5-36.5); Mean Corpuscular Volume 78 fL (80-100); NEUTROPHILS ABSOLUTE AUTO 7.09 K/mm3 (1.96-9.15); NEUTROPHILS PERCENT AUTO 73 % (41-73); Platelet Count 304 K/mm3 (150-400); RDW Coefficient Variation 17.1 % (11.7-14.2); RDW Standard Deviation 46.7 fL (35.1-46.3); Red Blood Cell Count 5.29 M/mm3 (3.80-5.20); White Blood Cell Count 9.73 K/mm3 (4.00-11.30)
[2024-12-05 16:00] LABS: Albumin, Blood 3.9 g/dL (3.4-5.0); Albumin/Globulin Ratio 0.9 (0.8-1.8); Bilirubin, Total 0.5 mg/dL (0.1-1.0); Bun/Creatinine Ratio 14.8 (12.0-20.0); Calcium, Blood 9.5 mg/dL (8.5-10.1); Creatinine, Blood 1.08 mg/dL (0.40-1.00); Globulin, Blood 4.2 g/dL (2.2-4.0); Potassium, Blood 4.1 mmol/L (3.5-5.5); Total Protein, Blood 8.1 g/dL (6.4-8.2)
[2024-12-05] MEDS ORDERED: CefTRIAXone Sodium 2,000 MG in NS 100 ML IV ONE (21:50)
[2024-12-05] MEDS ORDERED: Vancomycin HCL 1,500 MG in NS 250 ML IV ONE (22:00)
[2024-12-05 23:40] LABS: Source, Urine Condom Cath
[2024-12-05 23:48] LABS: Appearance, Urine Hazy (Clear); Bilirubin, Urine Neg (Neg); Blood, Urine 3+ (Neg); Color, Urine Yellow (P-Yellow); Glucose Qualitative, Urine Neg (Neg); Ketones, Urine Neg (Neg); Leukocyte Esterase, Urine 1+ (Neg); Nitrite, Urine Neg (Neg); Protein, Urine 3+ (Neg); Specific Gravity, Urine 1.015 (1.003-1.022); Urobilinogen, Urine NORM (Normal)
[2024-12-06] MEDS ORDERED: Ondansetron HCl 2 MG / ML 2ML Vial IV PRN (00:05)
[2024-12-06 00:24] LABS: Bacteria Many /hpf; Red Blood Cells, Urine 0-2 /hpf (0-2); Squamous Epithelial Cells Many /hpf (Few)
[2024-12-06] MEDS ORDERED: Acetaminophen 325 MG TABLET PO PRN (00:30)
[2024-12-06] MEDS ORDERED: Ampicillin Sod/Sulbactam Sod 3 GM in NS 100 ML IV SCH ×2 (00:57→08:00)
[2024-12-06] MEDS ORDERED: DiphenhydrAMINE HCl 50 MG/ML 1ML Vial IV ONE (01:00)
[2024-12-06] MEDS ORDERED: Famotidine 10 MG/ML 2ML Vial IV ONE (01:00)
[2024-12-06 02:20] VITALS: BP 149/98
[2024-12-06] MEDS ORDERED: NS 250 ML IV PRN (02:55)
[2024-12-06] MEDS ORDERED: NS 100 ML IV ONE (02:58)
[2024-12-06] MEDS ORDERED: Lactated Ringer's 500 ML IV SCH (03:15)
--- NOTE | 2024-12-06 03:30 | NUR ---
ADMIT NOTE FOR 12/06/24/SHIFT REPORT. PT ARRIVED TO ROOM 324 FROM ER AT APPROXIMATELY 0210. NEW ADMIT ASSESSMENT COMPLETED AND PT ORIENTED TO ROOM AND STAFF. NEXT ROUND OF ORDERED ABX ADMINISTERED PER EMAR. DENIES PAIN, CHEST PAIN OR SOB. LR STARTED AT 100 ML/HR X 500 MLS. LABS ORDERED FOR AM. REMAINS NPO. DID HAVE A SMALL REACTION OF ITCHING AND RASH TO VANCO IN ER, RECEIVED PEPCID AND BENADRYL. NO FURTHER REACTION NOTED AND SEEMS TO HAVE RESOLVED. 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 ON TELE NS @ 85. HAS A CURRENT UTI. PT RESTING COMFORTABLY IN BED WITH CALL LIGHT WITHIN REACH.
[2024-12-06 06:02] VITALS: BP 113/77
[2024-12-06 06:08] LABS: BASOPHILS ABSOLUTE AUTO 0.02 K/mm3 (0.00-0.23); BASOPHILS PERCENT AUTO 0 % (0-2); EOSINOPHILS ABSOLUTE AUTO 0.24 K/mm3 (0.00-0.68); EOSINOPHILS PERCENT AUTO 3 % (0-6); Hematocrit 35.8 % (33.0-51.0); Hemoglobin 11.6 g/dL (11.5-16.0); IMMATURE GRAN ABSOLUTE AUTO 0.06 K/mm3 (0.00-0.10); IMMATURE GRAN PERCENT AUTO 1 % (0-1); LYMPHOCYTES ABSOLUTE AUTO 1.67 K/mm3 (0.84-5.20); LYMPHOCYTES PERCENT AUTO 18 % (21-46); MONOCYTES ABSOLUTE AUTO 0.64 K/mm3 (0.16-1.47); MONOCYTES PERCENT AUTO 7 % (4-13); Mean Corpuscular HGB 25.3 pg (26.0-34.0); Mean Corpuscular HGB Conc 32.4 g/dL (31.5-36.5); Mean Corpuscular Volume 78 fL (80-100); Mean Platelet Volume 9.1 fL (9.1-12.4); NEUTROPHILS PERCENT AUTO 73 % (41-73); Platelet Count 274 K/mm3 (150-400); RDW Coefficient Variation 17.3 % (11.7-14.2); RDW Standard Deviation 47.5 fL (35.1-46.3); Red Blood Cell Count 4.58 M/mm3 (3.80-5.20); White Blood Cell Count 9.53 K/mm3 (4.00-11.30)
[2024-12-06 06:32] LABS: Albumin, Blood 3.4 g/dL (3.4-5.0); Albumin/Globulin Ratio 0.9 (0.8-1.8); Bilirubin, Total 0.5 mg/dL (0.1-1.0); Bun/Creatinine Ratio 13.5 (12.0-20.0); Creatinine, Blood 1.04 mg/dL (0.40-1.00); Globulin, Blood 3.6 g/dL (2.2-4.0); Potassium, Blood 3.7 mmol/L (3.5-5.5)
[2024-12-06 08:16] VITALS: BP 140/96
[2024-12-06] MEDS ORDERED: Lactobacil 2-S.Thermo-Bifido 1 1 Cap PO SCH (09:00)
--- NOTE | 2024-12-06 10:20 | NUR ---
PATIENT ALERT X4 ON RA WITH CONT PULSEOX DENIES SOB, NSR, VOIDING IN BATHROOM. RIGHT HAND IV INFUSING IV ABX AND LR, PATIENT DENIES PAIN AND IS ANTICIPATING CARDIAC ECHO "ULTRASOUND". DENIES HAVING HAD LUPUS. LEFT ARM FISTUAL WITH BRUIT AND THRILL. VITALS WNL
[2024-12-06] MEDS ORDERED: Vancomycin HCL 1,250 MG in NS 250 ML IV SCH (12:00)
[2024-12-06 12:12] VITALS: BP 132/92
[2024-12-06] MEDS ORDERED: AzaTHIOprine 50 MG Tab PO SCH (14:05)
[2024-12-06] MEDS ORDERED: PredniSONE 5 MG Tab PO SCH (14:09)
[2024-12-06] MEDS ORDERED: TACROLIMUS 4 MG PO SCH ×2 (14:18→14:30)
--- NOTE | 2024-12-06 15:25 | NUR ---
Pt. is awake and welcomes my visit. Pt. is pleasant but is unsettled about her condition as a young mother. Pts. infant son is in a stroller at bedside. Listen with interest and empathy. Pt. verbalizes a lengthy health history during a life review and verbalizes anxiety about unknown outcomes. Seek to normalize the Pt. expereince. Listen with empathy and a calming presence. Prayed with the Pt. Pt. verbalized gratitude for the spiritual care visit.
[2024-12-06 15:37] VITALS: BP 133/82
[2024-12-06] MEDS ORDERED: AMOCLA875 PO (18:59)
[2024-12-07] MEDS ORDERED: TACROLIMUS 4 MG PO SCH (09:00)
== END 2024-12-06 20:45 | disposition home or self-care (01) | DRG 158 ==
LOC: ER 14:56 → MEDS 12-06 00:21
PROVIDERS: Physician Assistant; Student in an Organized Health Care Education/Training Program; ADMIT Student in an Organized Health Care Education/Training Program
DX: K04.7 Periapical abscess without sinus (principal); D84.9 Immunodeficiency, unspecified; I97.191 Other postprocedural cardiac functional disturbances following other surgery; Z94.0 Kidney transplant status; N39.0 Urinary tract infection, site not specified; K02.9 Dental caries, unspecified; I48.91 Unspecified atrial fibrillation; M32.9 Systemic lupus erythematosus, unspecified; Y83.8 Other surgical procedures as the cause of abnormal reaction of the patient, or of later complication, without mention of misadventure at the time of the procedure; I10 Essential (primary) hypertension; Z88.8 Allergy status to other drugs, medicaments and biological substances; F41.9 Anxiety disorder, unspecified; F32.A Depression, unspecified; E78.5 Hyperlipidemia, unspecified; Z98.890 Other specified postprocedural states
CPT/HCPCS: 36415; 71046; 71260; 80053; 81001; 83605; 84484; 84703; 85025; 85379; 87086; 93005; 93010; 93246; 93306; 94762; 96365; 96367-59; 99285-25; A9270; J0295; J0696; J1200; J3370; J7050; J7120; J7500; J7512; Q9967

== ENCOUNTER 2024-12-07 12:26 | Inpatient (IN) | payer OTHER ==
[~2024-12-07] VITALS: Ht 160 cm; Wt 94.5 kg
--- NOTE | 2024-12-07 12:33 | NUR ---
PT ARRIVED TO UNIT VIA WC FROM HOME A DIRECT ADMIT. OBTAINED VS AND WEIGHT. PLACED IV AND SENT LABS OFF. DID HOME MED REC AND GOT PT SETTLED. AND KIDS ARE @ BEDSIDE. PT IS A&Ox4 AND ABLE TO MAKE NEEDS KNOWN. SHE IS ON RA W/O2 SATS>90%. NO NEEDS OR CONCERNS NOTED @ THIS TIME. BED IN LOW POSITION, CALL LIGHT AND PERSONAL BELONGINGS IN REACH.
[2024-12-07 12:39] VITALS: BP 154/132
[2024-12-07 13:31] LABS: BASOPHILS ABSOLUTE AUTO 0.01 K/mm3 (0.00-0.23); BASOPHILS PERCENT AUTO 0 % (0-2); EOSINOPHILS ABSOLUTE AUTO 0.15 K/mm3 (0.00-0.68); EOSINOPHILS PERCENT AUTO 2 % (0-6); Hematocrit 36.6 % (33.0-51.0); Hemoglobin 11.9 g/dL (11.5-16.0); IMMATURE GRAN ABSOLUTE AUTO 0.03 K/mm3 (0.00-0.10); IMMATURE GRAN PERCENT AUTO 0 % (0-1); LYMPHOCYTES ABSOLUTE AUTO 1.40 K/mm3 (0.84-5.20); LYMPHOCYTES PERCENT AUTO 18 % (21-46); MONOCYTES ABSOLUTE AUTO 0.50 K/mm3 (0.16-1.47); MONOCYTES PERCENT AUTO 6 % (4-13); Mean Corpuscular HGB Conc 32.5 g/dL (31.5-36.5); Mean Corpuscular Volume 78 fL (80-100); NEUTROPHILS ABSOLUTE AUTO 5.90 K/mm3 (1.96-9.15); NEUTROPHILS PERCENT AUTO 74 % (41-73); NRBC ABSOLUTE 0.00 K/mm3 (0.00-0.02); NRBC Auto 0.0 /100 WBC (0.0-0.2); Platelet Count 264 K/mm3 (150-400); RDW Coefficient Variation 16.9 % (11.7-14.2); RDW Standard Deviation 46.6 fL (35.1-46.3)
[2024-12-07 13:50] LABS: Alanine Aminotransfer (ALT/SGP 18.0 U/L (12-78); Albumin, Blood 3.8 g/dL (3.4-5.0); Albumin/Globulin Ratio 1.1 (0.8-1.8); Anion Gap 8.0 mmol/L (3-11); Aspartate Aminotrans (AST/SGOT 11.0 U/L (12-37); Bilirubin, Total 0.5 mg/dL (0.1-1.0); Blood Urea Nitrogen 16.0 mg/dL (8-24); CO2, Blood 24.0 mmol/L (21-32); Calcium, Blood 9.2 mg/dL (8.5-10.1); Chloride, Blood 112.0 mmol/L (98-108); Creatinine, Blood 1.09 mg/dL (0.40-1.00); Globulin, Blood 3.6 g/dL (2.2-4.0); Glucose, Blood 105.0 mg/dL (70-99); Potassium, Blood 3.8 mmol/L (3.5-5.5); Sodium, Blood 140.0 mmol/L (136-145); Total Protein, Blood 7.4 g/dL (6.4-8.2)
[2024-12-07 13:53] LABS: Anti-Xa UFH, PHA Monitoring <0.10 IU/mL; Prothrombin Time Results 11.0 Sec (9.7-11.5)
[2024-12-07] MEDS ORDERED: Heparin Sodium,Porcine/0.5 NS 500 ML IV SCH (14:00)
[2024-12-07] MEDS ORDERED: Heparin Sodium 5000 Units/ML 1ML MDV IV ONE (14:00)
[2024-12-07] MEDS ORDERED: Lidocaine HCl 2% 20 MG/ML 5ML SYR IV ONE (15:08)
[2024-12-07] MEDS ORDERED: Propofol 10mg/ml 20 ml Vial (Procedural) IV ONE ×2 (15:08)
[2024-12-07 16:02] VITALS: BP 149/117
[2024-12-07 20:17] VITALS: BP 162/109
[2024-12-07] MEDS ORDERED: Clarify Drug Order XX ONE (21:45)
[2024-12-07 22:31] VITALS: BP 152/95
[2024-12-08 02:09] VITALS: BP 130/88
[2024-12-08 04:24] LABS: BASOPHILS ABSOLUTE AUTO 0.01 K/mm3 (0.00-0.23); BASOPHILS PERCENT AUTO 0 % (0-2); EOSINOPHILS ABSOLUTE AUTO 0.06 K/mm3 (0.00-0.68); EOSINOPHILS PERCENT AUTO 1 % (0-6); Hematocrit 34.6 % (33.0-51.0); Hemoglobin 11.1 g/dL (11.5-16.0); IMMATURE GRAN ABSOLUTE AUTO 0.03 K/mm3 (0.00-0.10); IMMATURE GRAN PERCENT AUTO 0 % (0-1); LYMPHOCYTES ABSOLUTE AUTO 1.39 K/mm3 (0.84-5.20); LYMPHOCYTES PERCENT AUTO 19 % (21-46); MONOCYTES ABSOLUTE AUTO 0.42 K/mm3 (0.16-1.47); MONOCYTES PERCENT AUTO 6 % (4-13); Mean Corpuscular HGB Conc 32.1 g/dL (31.5-36.5); Mean Corpuscular Volume 81 fL (80-100); NEUTROPHILS ABSOLUTE AUTO 5.37 K/mm3 (1.96-9.15); NEUTROPHILS PERCENT AUTO 74 % (41-73); NRBC ABSOLUTE 0.00 K/mm3 (0.00-0.02); NRBC Auto 0.0 /100 WBC (0.0-0.2); Platelet Count 242 K/mm3 (150-400); RDW Coefficient Variation 16.9 % (11.7-14.2); RDW Standard Deviation 48.1 fL (35.1-46.3)
[2024-12-08 04:56] LABS: Alanine Aminotransfer (ALT/SGP 18.0 U/L (12-78); Albumin, Blood 3.5 g/dL (3.4-5.0); Albumin/Globulin Ratio 1.1 (0.8-1.8); Anion Gap 7.0 mmol/L (3-11); Aspartate Aminotrans (AST/SGOT 10.0 U/L (12-37); Bilirubin, Total 0.3 mg/dL (0.1-1.0); Blood Urea Nitrogen 15.0 mg/dL (8-24); CO2, Blood 24.0 mmol/L (21-32); Calcium, Blood 8.7 mg/dL (8.5-10.1); Chloride, Blood 111.0 mmol/L (98-108); Creatinine, Blood 1.12 mg/dL (0.40-1.00); Globulin, Blood 3.3 g/dL (2.2-4.0); Glucose, Blood 118.0 mg/dL (70-99); Magnesium, Blood 1.4 mg/dL (1.6-2.4); Potassium, Blood 4.1 mmol/L (3.5-5.5); Sodium, Blood 138.0 mmol/L (136-145); Total Protein, Blood 6.8 g/dL (6.4-8.2)
--- NOTE | 2024-12-08 05:02 | NUR ---
NOC SHIFT SUMMARY PT IS A+O X4 ABLE TO MAKE NEEDS KNOWN. SHE IS ANXIOUS AT TIMES BUT COOPERATIVE WITH CARES. SBA TO THE BATHROOM FOR VOIDING. SHE WAS ABLE TO SHOWER DURING THE SHIFT. SHE WAS ABLE TO SLEEP ON AND OFF MOST OF THE NIGHT. TELE IN PLACE SHOWS SINUS RATE IN THE 80S. DENIES CHEST PAIN OR PRESSURE DURING NOC SHIFT. DENIES SOB. SHE DID HOWEVER ENDOURSE A RICHARDSON AND WAS MEDICATED WITH PRNS FOR THIS. NO ACUTE ISSUES OVER NIGHT. CALL LIGHT IN REACH. WILL REPORT TO ONCOMING RN.
[2024-12-08] MEDS ORDERED: Clarify Drug Order XX ONE (05:10)
[2024-12-08 07:19] VITALS: BP 139/80
[2024-12-08] MEDS ORDERED: TACROLIMUS 4 MG PO SCH (09:00)
[2024-12-08 11:01] VITALS: BP 147/90
[2024-12-08] MEDS ORDERED: Dose Adjust by Pharmacy XX STA (14:22)
[2024-12-08 16:05] VITALS: BP 158/101
--- NOTE | 2024-12-08 17:12 | NUR ---
SHIFT SUMMARY: PT ALERT AND ORIENTED X4, ABLE TO FOLLOW COMMANDS AND MAKE NEEDS KNOWN. STRENGTH EQUAL BILATERALLY. BP AND HR STABLE. AFEBRILE. SPO2 >98% ON ROOM AIR. RESPIRATIONS EVEN AND UNLABORED. ABD SOFT, NON TENDER, BOWEL SOUNDS +.PULSES PALPABLE. [employer] IN THIS AM, PLAN FOR VENECIA 12/09/24, PT NPO AT MIDNIGHT. REMAINS ON HEPARIN GTT. SBA TO AND FROM BATHROOM. NO BM. CONT OF URINE. SPOUSE AND SON AT BEDSIDE THROUGHOUT THE DAY, PT AND SPOUSE VERY ANXIOUS. UPDATED FREQUENTLY ON PT PLAN OF CARE. BED IN LOW, CALL LIGHT IN REACH, WILL REPORT TO ONCOMING RN.
[2024-12-08 20:40] VITALS: BP 163/97
[2024-12-09] VITALS (18 sets, daily range): BP systolic 97–157; BP diastolic 64–105
[2024-12-09 04:29] LABS: BASOPHILS ABSOLUTE AUTO 0.01 K/mm3 (0.00-0.23); BASOPHILS PERCENT AUTO 0 % (0-2); EOSINOPHILS ABSOLUTE AUTO 0.08 K/mm3 (0.00-0.68); EOSINOPHILS PERCENT AUTO 1 % (0-6); Hematocrit 34.9 % (33.0-51.0); Hemoglobin 11.5 g/dL (11.5-16.0); IMMATURE GRAN ABSOLUTE AUTO 0.02 K/mm3 (0.00-0.10); IMMATURE GRAN PERCENT AUTO 0 % (0-1); LYMPHOCYTES ABSOLUTE AUTO 1.57 K/mm3 (0.84-5.20); LYMPHOCYTES PERCENT AUTO 24 % (21-46); MONOCYTES ABSOLUTE AUTO 0.47 K/mm3 (0.16-1.47); MONOCYTES PERCENT AUTO 7 % (4-13); Mean Corpuscular HGB Conc 33.0 g/dL (31.5-36.5); Mean Corpuscular Volume 79 fL (80-100); NEUTROPHILS ABSOLUTE AUTO 4.54 K/mm3 (1.96-9.15); NEUTROPHILS PERCENT AUTO 68 % (41-73); NRBC ABSOLUTE 0.00 K/mm3 (0.00-0.02); NRBC Auto 0.0 /100 WBC (0.0-0.2); Platelet Count 235 K/mm3 (150-400); RDW Coefficient Variation 16.8 % (11.7-14.2); RDW Standard Deviation 47.2 fL (35.1-46.3)
[2024-12-09 04:51] LABS: Alanine Aminotransfer (ALT/SGP 18.0 U/L (12-78); Albumin, Blood 3.5 g/dL (3.4-5.0); Albumin/Globulin Ratio 1.0 (0.8-1.8); Anion Gap 5.0 mmol/L (3-11); Aspartate Aminotrans (AST/SGOT 14.0 U/L (12-37); Bilirubin, Total 0.4 mg/dL (0.1-1.0); Blood Urea Nitrogen 13.0 mg/dL (8-24); CO2, Blood 26.0 mmol/L (21-32); Calcium, Blood 9.0 mg/dL (8.5-10.1); Chloride, Blood 111.0 mmol/L (98-108); Creatinine, Blood 1.05 mg/dL (0.40-1.00); Globulin, Blood 3.4 g/dL (2.2-4.0); Glucose, Blood 100.0 mg/dL (70-99); Potassium, Blood 3.9 mmol/L (3.5-5.5); Sodium, Blood 138.0 mmol/L (136-145); Total Protein, Blood 6.9 g/dL (6.4-8.2)
--- NOTE | 2024-12-09 05:38 | NUR ---
NOC SHIFT SUMMARY PT IS A+O X4, ABLE TO MAKE NEEDS KNOWN. SHE IS VERY ANXIOUS AT TIMES AND DOES NOT COPE WELL BEING AWAY FROM HER ACCORDING TO THE PATIENT. PATIENT SPENDS ALL NIGHT ON THE PHONE WITH HIM FOR COMFORT. PT IS A SBA TO THE BATHROOM TO ASSIST W/ IV POLE AND TELE. PT VOIDING WITHOUT DIFFICULTY. NPO SINCE MIDNIGHT FOR A VENECIA TODAY. TELE SHOWS SINUS RATE BETWEEN 70-80s MOST OF THE NIGHT. DENIES CHEST PAIN OR PRESSURE. BP ELAVATED AT START OF SHIFT. HEPARIN GTT INFUSING PER EMAR. RA WITH SATURATIONS >93%, BREATHING EVEN AND UNLABORED. PT WAS ABLE TO REST ON AND OFF DURING THE NIGHT IN BETWEEN CARES. BED IN LOWEST POSTION FOR SAFETY, CALL LIGHT IN REACH. WILL REPORT TO ONCOMING RN.
[2024-12-09] MEDS ORDERED: Clarify Drug Order XX ONE (05:50)
[2024-12-09] MEDS ORDERED: Benzocaine Oral Spray 0.5ML UD ONE (12:17)
[2024-12-09] MEDS ORDERED: NS 1,000 ML IV ONE (12:24)
--- NOTE | 2024-12-09 13:10 | NUR ---
ASSUMED CARE FROM ANESTHESIA. PT IS AWAKE AND VERBALIZING WELL.
--- NOTE | 2024-12-09 13:16 | NUR ---
PT WILL BE TRANSFERED BACK TO PCU VIA W/C. PT IS ALERT AND VERBLIZING WELL.
--- NOTE | 2024-12-09 15:47 | NUR ---
Upon receiving a referral for spiritual care, I visited the patient. She has her spouse, Olman and two children present. The room is a bit noisy and busy and communication with the patient is pulled away by the distractions in the room. The expresses her concerns about an upcoming test and Olman speaks about the anxiety and stress the patient's condition is causing him. I pray for peace for both of patient and for Olman as well as provided therapeutic listening and a calming presence. PAtient and Olman responded well and showed signs of reduced stress. I will remain available to patient and family.
--- NOTE | 2024-12-09 17:58 | NUR ---
SHIFT SUMMARY; ASSUMED CARE AT 0700. A/A/OX4. VENECIA COMPLETED TODAY. HEPARIN INFUSING 18UNITS/KG. SPOUSE AT BEDSIDE DURING SHIFT. REPOSITIONS SELF IN BED NEEDED. LINEN CHANGE TODAY. UPDATED ON POSSIBLE DISCHARGE TOMORROW. WILL CONTINUE TO MONITOR AND TREAT UNTIL REPORT GIVEN TO NOC SHIFT RN.
[2024-12-10 00:30] VITALS: BP 136/96
[2024-12-10 04:43] VITALS: BP 140/92
[2024-12-10 05:08] LABS: BASOPHILS ABSOLUTE AUTO 0.03 K/mm3 (0.00-0.23); BASOPHILS PERCENT AUTO 1 % (0-2); EOSINOPHILS ABSOLUTE AUTO 0.07 K/mm3 (0.00-0.68); EOSINOPHILS PERCENT AUTO 1 % (0-6); Hematocrit 35.5 % (33.0-51.0); Hemoglobin 11.6 g/dL (11.5-16.0); IMMATURE GRAN ABSOLUTE AUTO 0.03 K/mm3 (0.00-0.10); IMMATURE GRAN PERCENT AUTO 1 % (0-1); LYMPHOCYTES ABSOLUTE AUTO 1.55 K/mm3 (0.84-5.20); LYMPHOCYTES PERCENT AUTO 24 % (21-46); MONOCYTES ABSOLUTE AUTO 0.45 K/mm3 (0.16-1.47); MONOCYTES PERCENT AUTO 7 % (4-13); Mean Corpuscular HGB Conc 32.7 g/dL (31.5-36.5); Mean Corpuscular Volume 79 fL (80-100); NEUTROPHILS ABSOLUTE AUTO 4.45 K/mm3 (1.96-9.15); NEUTROPHILS PERCENT AUTO 68 % (41-73); NRBC ABSOLUTE 0.00 K/mm3 (0.00-0.02); NRBC Auto 0.0 /100 WBC (0.0-0.2); Platelet Count 251 K/mm3 (150-400); RDW Coefficient Variation 17.2 % (11.7-14.2); RDW Standard Deviation 48.2 fL (35.1-46.3)
--- NOTE | 2024-12-10 05:22 | NUR ---
SHIFT SUMMARY; PATIENT SLEPT IN LONG INTERVALS, HEPARIN INFUSING ORDERED. VSS. TELE SR 85. NO PRN MEDS NEEDED, VSS.
[2024-12-10] MEDS ORDERED: Dose Adjust by Pharmacy XX STA (05:29)
[2024-12-10] MEDS ORDERED: Heparin Sodium 5000 Units/ML 1ML MDV IV ONE (05:30)
[2024-12-10 05:32] LABS: Anion Gap 11.0 mmol/L (3-11); Blood Urea Nitrogen 15.0 mg/dL (8-24); CO2, Blood 22.0 mmol/L (21-32); Calcium, Blood 8.8 mg/dL (8.5-10.1); Chloride, Blood 109.0 mmol/L (98-108); Creatinine, Blood 1.09 mg/dL (0.40-1.00); Glucose, Blood 113.0 mg/dL (70-99); Potassium, Blood 3.6 mmol/L (3.5-5.5); Sodium, Blood 138.0 mmol/L (136-145)
--- NOTE | 2024-12-10 06:26 | NUR ---
AT 0630 HEPARIN 1700 UNITS BOLUS GIVEN. THEN HEPARIN INCREASED TO 20 U/KG/HR 28ML/HR ON THE PUMP.
[2024-12-10 07:51] VITALS: BP 141/99
--- NOTE | 2024-12-10 09:37 | NUR ---
AM NOTE: PATIENT ALERT AND ORIENTED. DENIES PAINS. UP WITH SBA TO HELP MANAGE CORDS/TUBING. PATIENT STATES "I FEEL NORMAL BESIDES BEING TIRED". ON ROOM AIR SATING ABOVE 95%. DENIES SOB/COUGH. EVEN AND UNLABORED RESPIRATIONS. TELE SHOWING SR WITH HR 80'S. DENIES CHEST PAIN/PRESSURE/PALPITATIONS. HEPARIN GTT INFUSING PER EMAR. MEDIPORT TO CHEST. FISTULA TO LEFT WRIST. NO EDEMA NOTED. DENIES ABDOMINAL PAIN/NAUSEA. TOLERATING PO DIET. BOWEL TONES PRESENT. VOIDING WITHOUT ISSUES. SKIN C/D/I. CALL LIGHT IN REACH. RESTING IN BED AT THIS TIME.
[2024-12-10 11:23] VITALS: BP 142/88
--- NOTE | 2024-12-10 11:37 | NUR ---
The patient is lying in bed and alert. She tells me that she hopes to go home this day and that she is grateful that her medical testing came back well but there are some "scary things" that will need to be addressed as an outpatient. She then talks about her family dynamics, her Autistic son and her hopes for the future. I provided therapeuti listening, anxiety containment and prayer. The patient reponded well and showed signs of greater peace. I will continue to remain available to the patient and family.
--- NOTE | 2024-12-10 13:09 | NUR ---
DISCHARGE NOTE: NO ACUTE CHANGES. PATIENT FAMILY AT BEDSIDE FOR DISCHARGE INSTRUCTION AND FOLLOW UP APPOINTMENTS/PET SCAN INSTRUCTIONS. VITAL SIGNS REMAIN STABLE. DR. GEORGE TO BEDSIDE PRIOR TO DC. IV REMOVED. PATIENT DISCHARGED VIA WHEELCHAIR WITH ALL PERSONAL BELONGINGS AND DISCHARGE PACKET.
[2024-12-11] MEDS ORDERED: BELATACEPT IV SCH (12:00)
[2024-12-11] MEDS ORDERED: NS IV SCH (12:00)
== END 2024-12-10 12:57 | disposition home or self-care (01) | DRG 313 ==
LOC: PCU 12:26
PROVIDERS: Family Medicine; ADMIT Internal Medicine
PROC: B24BZZ4 Ultrasonography of Heart with Aorta, Transesophageal (ICD-10-PCS; principal; 2024-12-09)
DX: R07.89 Other chest pain (principal); Z94.0 Kidney transplant status; I12.9 Hypertensive chronic kidney disease with stage 1 through stage 4 chronic kidney disease, or unspecified chronic kidney disease; M32.9 Systemic lupus erythematosus, unspecified; I49.9 Cardiac arrhythmia, unspecified; G44.229 Chronic tension-type headache, not intractable; I10 Essential (primary) hypertension; Z79.52 Long term (current) use of systemic steroids; Z79.621 Long term (current) use of calcineurin inhibitor; Z79.2 Long term (current) use of antibiotics
CPT/HCPCS: 36415; 80048; 80053; 83735; 85025; 85520; 85610; 85730; 93312; 93325; A9270; J1644; J2003; J2704; J7030; J7500; J7512

== ENCOUNTER 2024-12-09 01:02 | Day surgery (SDC) | payer OTHER ==
--- NOTE | 2024-12-09 10:01 | NUR ---
Pt is currently an inpatient and will not been treated in the [facility] today.
== END 2024-12-09 23:00 | disposition home or self-care (01) ==
LOC: ATC 01:02
DX: Z29.89 Encounter for other specified prophylactic measures (principal); I12.0 Hypertensive chronic kidney disease with stage 5 chronic kidney disease or end stage renal disease; N18.6 End stage renal disease; Z79.52 Long term (current) use of systemic steroids; Z79.621 Long term (current) use of calcineurin inhibitor; Z79.624 Long term (current) use of inhibitors of nucleotide synthesis; Z79.899 Other long term (current) drug therapy; Z88.8 Allergy status to other drugs, medicaments and biological substances; Z94.0 Kidney transplant status

== ENCOUNTER → 2025-01-31 | Outpatient (CLI) | payer OTHER ==
[2025-01-31 19:41] LABS: Bacterial Vaginosis PCR Negative (NEGATIVE); Candida Group, PCR NOT DETECTED (NOT DETECT); Candida glabrata-krusei, PCR NOT DETECTED (NOT DETECT)
[2025-02-07 12:15] LABS: HPVG SOURCE Cervical/Vag
== END ==
LOC: LAB SHORT 17:18 → LAB 17:18
PROVIDERS: Obstetrics & Gynecology
DX: Z01.419 Encounter for gynecological examination (general) (routine) without abnormal findings (principal); N76.0 Acute vaginitis
CPT/HCPCS: 81515; 87624; 87625; G0145

== ENCOUNTER → 2025-02-13 | Outpatient (CLI) | payer OTHER ==
[2025-02-13 12:38] LABS: Source, Urine Clean Catch
[2025-02-13 13:26] LABS: Bilirubin, Urine Neg (Neg); Color, Urine Yellow (P-Yellow); Glucose Qualitative, Urine Neg (Neg); Ketones, Urine Neg (Neg); Leukocyte Esterase, Urine 3+ (Neg); Protein, Urine 2+ (Neg); Specific Gravity, Urine 1.015 (1.003-1.022); Urobilinogen, Urine NORM (Normal)
[2025-02-13 13:43] LABS: White Blood Cells, Urine 50-100 /hpf (0-5)
== END ==
LOC: LAB SHORT 12:36 → LAB 12:36
PROVIDERS: Student in an Organized Health Care Education/Training Program
DX: R39.89 Other symptoms and signs involving the genitourinary system (principal)
CPT/HCPCS: 81001; 87077; 87086; 87186

== ENCOUNTER → 2025-04-16 | Outpatient (CLI) | payer OTHER | LOC: LAB SHORT 18:44 → LAB 18:44 | DX: N39.0 Urinary tract infection, site not specified (principal) | CPT/HCPCS: 87077; 87086; 87186 ==